=== PATIENT | male | born 1965 | race Native Hawaiian/Other Pacific Islander ===

== ENCOUNTER 2017-06-16 04:01 | Inpatient (IN) | payer OTHER ==
[2017-06-16] MEDS ORDERED: ZOFRAN IV ONE ×2 (04:05→06:44)
[2017-06-16] MEDS ORDERED: ZOFRAN ONE (04:12)
[2017-06-16 04:31] LABS: Hematocrit 43.6 % (35.5-45.6); Hemoglobin 14.8 gm/dl (11.8-15.2); Mean Corpuscular HGB Conc 34 % (32-34); Mean Corpuscular Hemoglobin 28 pg (28-32); Mean Corpuscular Volume 82 fl (84-94); Platelet Count 342 K/mm3 (140-440); Red Blood Count 5.32 M/mm3 (3.65-5.03); Red Cell Distribution Width 14.4 % (13.2-15.2); White Blood Count 15.5 K/mm3 (4.5-11.0)
[2017-06-16 04:54] LABS: Alanine Aminotransferase 32 units/L (7-56); Albumin 4.1 g/dL (3.9-5); Albumin/Globulin Ratio 1.1 %; Alkaline Phosphatase 73 units/L (35-129); Anion Gap 22 mmol/L; Blood Urea Nitrogen 18 mg/dL (9-20); Calcium 8.7 mg/dL (8.4-10.2); Carbon Dioxide 21 mmol/L (22-30); Chloride 99.5 mmol/L (98-107); Glucose 213 mg/dL (75-100); Lipase 44 units/L (13-60); Potassium 3.4 mmol/L (3.6-5.0); Sodium 139 mmol/L (137-145)
--- NOTE | 2017-06-16 05:29 | Cat Scan Report ---
FINAL REPORT PROCEDURE: CT HEAD/BRAIN WO CON TECHNIQUE: Computerized tomography of the head was performed without contrast material. HISTORY: headache, htn COMPARISON: No prior studies are available for comparison. FINDINGS: Skull and scalp: Normal. Paranasal sinuses: Normal. Ventricles and subarachnoid spaces: Normal. Cerebrum: No evidence of hemorrhage, acute infarction or mass . Cerebellum and brainstem: No evidence of hemorrhage, acute infarction or mass. Vasculature: Normal. Comments: None. IMPRESSION: There is no evidence of an acute intracranial process
[2017-06-16 05:59] LABS: Basophils % (Manual) 0 % (0.0-1.8); Blastocytes % (Manual) 0 %; Diff Status Complete; RBC Morphology Normal
[2017-06-16 06:33] LABS: Bilirubin,Urine NEG (Negative); Blood,Urine NEG (Negative); Ketones,Urine NEG (Negative); Leukocyte Esterase,Urine NEG (Negative); Nitrite,Urine NEG (Negative); Protein,Urine <15 mg/dL mg/dL (Negative); Urobilinogen,Urine < 2.0 mg/dL (<2.0); WBC,Urine < 1.0 /HPF (0.0-6.0)
[2017-06-16] MEDS ORDERED: NACL 0.9% 1000 ML 1,000 ML IV ONE (06:44)
[2017-06-16] MEDS ORDERED: ANTIVERT PO ONE (06:44)
--- NOTE | 2017-06-16 06:47 | Emergency Department Report ---
HPI - General Chief Complaint: High BP Time Seen by Provider: 06/16/17 05:06 - HPI HPI: This is a 51-year-old male who presents to the emergency department via EMS from home with a complaint of a generalized headache, nausea, vomiting and dizziness. This dizziness does have some symptoms of vertigo and/or the room spinning. This began "out of nowhere" this evening when he got home. He did not take anything for his symptoms prior to presentation. He denies any vision change, slurred speech or any other obvious neurological deficits. The patient was found to have very elevated blood pressure upon EMS arrival with a systolic of about 200. The patient admits that he has not taken his blood pressure medication, whose name he cannot remember, for the past month because it causes nausea. He is also a [id number]-[id number] diabetic but says he is compliant with his metformin. He denies tobacco or illicit drug use or abuse. He denies any alcohol abuse or caffeine use. No recent travel or sick contacts at home. His primary care physician is a Dr. Cobb. ED Past Medical Hx - Past Medical History Hx Hypertension: Yes Hx Diabetes: Yes - Surgical History Past Surgical History?: No - Social History Smoking Status: Never Smoker Substance Use Type: None ED Review of Systems ROS: Stated complaint: NV Other details as noted in HPI Comment: All other systems reviewed and negative Constitutional: denies: chills, fever Eyes: denies: eye pain, eye discharge, vision change ENT: denies: ear pain, throat pain Respiratory: denies: cough, shortness of breath, wheezing Cardiovascular: denies: chest pain, palpitations Gastrointestinal: nausea, vomiting Genitourinary: denies: urgency, dysuria Musculoskeletal: denies: back pain, joint swelling, arthralgia Skin: denies: rash, lesions Neurological: headache, vertigo, other (dizziness). denies: weakness, numbness , paresthesias Physical Exam - Physical Exam Vital Signs: Vital Signs 06/16/17 06/16/17 04:26 04:32 Temperature 98.7 F Pulse Rate 80 Respiratory 20 Rate Blood Pressure 146/97 O2 Sat by Pulse 100 99 Oximetry Physical Exam: GENERAL: The patient is well-developed well-nourished. HENT: Normocephalic. Atraumatic. Patient has moist mucous membranes. EYES: Extraocular motions are intact. Pupils equal reactive to light bilaterally. Fatigable horizontal nystagmus. NECK: Supple. Trachea is midline. CHEST/LUNGS: Clear to auscultation. There is no respiratory distress noted. HEART/CARDIOVASCULAR: Regular. There is no tachycardia. There is no gallop rub or murmur. ABDOMEN: Abdomen is soft, nontender. Patient has normal bowel sounds. There is no abdominal distention. SKIN: Skin is warm and dry. NEURO: The patient is awake, alert, and oriented. The patient is cooperative. The patient has no focal neurologic deficits. The patient has normal speech. Cranial nerves II through XII grossly intact. No pronator drift. No dysmetria. MUSCULOSKELETAL: There is no tenderness or deformity. There is no limitation range of motion. There is no evidence of acute injury. ED Course Vital Signs 06/16/17 06/16/17 04:26 04:32 Temperature 98.7 F Pulse Rate 80 Respiratory 20 Rate Blood Pressure 146/97 O2 Sat by Pulse 100 99 Oximetry ED Medical Decision Making - Lab Data Result diagrams: 06/16/17 04:22 06/16/17 04:22 - EKG Data -: EKG Interpreted by Ok EKG shows normal: sinus rhythm, axis, intervals, QRS complexes, ST-T waves (T wave inversions to the lateral leads) Rate: normal - EKG Data When compared to previous EKG there are: previous EKG unavailable Interpretation: other (sinus rhythm, normal axis, normal rate, T-wave inversions to the lateral leads) - Radiology Data Radiology results: report reviewed CT of the head does not show any acute intracranial process including no ischemia, shift, mass, bleeding or skull fracture. - Medical Decision Making This is a 51-year-old male who presents to the emergency department after he had an acute headache, dizziness, vertigo and nausea and vomiting last night. CT of the head does not show any bleed, shift, mass or any acute process. His EKG does not show any signs of ST elevation SD but there are lateral T-wave inversions and no previous EKG to compare this to. Labs thus far been unremarkable and do not show any etiology of the symptoms. Negative troponins 2 and normal thyroid function. There is a leukocytosis but it may be reactive to the nausea and vomiting. The patient had a documented hypertensive pressure with EMS of a systolic of about 200 but came down without any medications. He was given 8 of Zofran, 10 of Reglan, 25 mg of Antivert and upon reevaluation he still is not feeling improved. When he opens his eyes are with any movement it appears to worsen his vertigo/dizziness and his nausea. For this reason the patient will be admitted to the hospital for further evaluation and possible MRI to look into other etiology of his symptoms and he has been accepted for admission by the hospitalist service. - Differential Diagnosis vertigo, Mnire's, labrynthitis, CVA Critical Care Time: No Critical care attestation.: If time is entered above; I have spent that time in minutes in the direct care of this critically ill patient, excluding procedure time. ED Disposition Clinical Impression: Vertigo, Dizziness Headache Qualifiers: Headache type: unspecified Headache chronicity pattern: acute headache Intractability: not intractable Qualified Code(s): R51 - Headache Intractable nausea and vomiting Qualifiers: Vomiting type: unspecified Qualified Code(s): R11.2 - Nausea with vomiting, unspecified Disposition: -09 OP ADMIT IP TO THIS HOSP Is pt being admited?: Yes Condition: Stable Referrals: PRIMARY CARE, [Primary Care Provider] - 3-5 Days Time of Disposition: 08:18
[2017-06-16] MEDS ORDERED: REGLAN IV ONE (06:51)
--- NOTE | 2017-06-16 08:29 | Admit Criteria Form ---
<KELI CALLOWAY - Last Filed: 06/19/17 14:05> Admission Criteria Documentation: VERTIGO Clinical Indications for Admission to Inpatient Care (Place 'X' for any and all applicable criteria): Admission is indicated for ANY ONE of the following(1)(2)(3)(4): [ ]I. Acute bacterial labyrinthitis [ ]II. A suspected etiology that requires admission for treatment [X ]III. Inpatient admission required rather than observation care (Also use Vertigo: Observation Care as appropriate) because of ANY ONE of the following: [ ]a) Hemodynamic instability that is severe or persistent [X ]b) Signs or symptoms that are severe or persistent (eg, vomiting , orthostasis, inability to ambulate) [ ]c) Cardiac arrhythmias of immediate concern [ ]d) Severe (new) neurologic findings requiring inpatient care as indicated by ANY ONE of the following(6)(7) [ ]1) Cerebral bleeding, ischemia, or vasospasm(8)(9) [ ]2) Increased intracranial pressure or hydrocephalus(10) (11)(12) [ ]3) Papilledema [ ]4) Cerebral edema [ ]5) Mass effect on CT scan [ ]e) Vomiting that is severe or persistent [ ]f) Continuous IV infusion of anticoagulation, platelet inhibitor, vasoactive, or antiarrhythmic medication [ ]g) Cerebral bleeding, hydrocephalus, or vasospasm monitoring(14) [ ]h) Increased intracranial pressure or cerebral edema monitoring [ ]i) Other condition, treatment or monitoring requiring inpatient admission [ ]IV. Cerebellar, brainstem, or cerebral ischemia or hemorrhage(5) Extended stay beyond goal length of stay may be needed for evaluating and treating a specific cause of dizziness, including(26): [ ]a) Head injury (27) ( Also use Traumatic Brain Injury, Nonsurgical Treatment guideline) [ ]b) New-onset vertebrobasilar vascular insufficiency(23) [ ]c) Acute Meniere disease with intractable symptoms [ ]d) Cardiac arrhythmias or conduction defects [ ]e) Acute neurologic event causing dizziness [ ]f) Myocardial ischemia [ ]g) Acute bacterial labyrinthitis(1) [ ]h) Severe acute vestibular neuronitis(18) The original [employer] content created by Beth Durán has been revised. The portions of the content which have been revised are identified through the use of italic text or in bold, and [facility] has neither reviewed nor approved the modified material. All other unmodified content is copyright [facility] [employer]. Please see references footnoted in the original [facility] edition 2016 Admission Criteria Met: Yes <ELANA GARCÍA - Last Filed: 06/19/17 20:05> Admission Criteria Documentation: This admission criteria sheet had no bearing on any medical decision making or clinical decisions from the emergency department and full admission vs observational stay will be decided upon by the hospitalist service and any subsequent specialists seeing this patient.
[2017-06-16] MEDS ORDERED: ANTIVERT PO PRN (09:51)
[2017-06-16] MEDS ORDERED: ZOFRAN IM PRN (09:56)
--- NOTE | 2017-06-16 09:58 | History and Physical Report ---
<LIZ GONZALEZ - Last Filed: 06/16/17 12:28> History of Present Illness Date of examination: 06/16/17 Date of admission: 06/16/2017 Chief complaint: Dizziness,vertigo, nausea and vomiting History of present illness: Patient is a 51 years old male with past medical history of hypertension and diabetes mellitus who presents to the emergency department via EMS from home with a complaint of a generalized headache, nausea, vomiting and dizziness. Patient was in his usual state of health, which allows him to lead a fairly active life, until last night he ate canned mushroom soup that was left over the refrigerator. Patient states he noticed the dizziness as he was getting out of bed and followed by nausea and vomiting.He described the dizziness as "feeling like he was going to pass out." He does remember what happened and he did not lost consciousness, but he admitted vision change . He had a headache after the episode. Prior to dizziness, he did not experience a headache. The dizziness does have some symptoms of vertigo and/or the room spinning. he denies chest pain, palpitations, or shortness of breath. He was not incontinent. He did not take anything for his symptoms prior to presentation. patient was found to have very elevated blood pressure upon EMS arrival with a systolic of about 200. The patient admits that he has not taken his blood because makes him sick. Past History Past Medical History: diabetes, hypertension, other (gout ) Past Surgical History: No surgical history Social history: Lives alone. denies: smoking, alcohol abuse Family history: CAD, hypertension Medications and Allergies Allergies Allergy/AdvReac Type Severity Reaction Status Date / Time No Known Allergies Allergy Verified 06/16/17 04:09 Home Medications Medication Instructions Recorded Confirmed Last Taken Type Allopurinol 300 mg PO DAILY 06/16/17 06/16/17 Unknown History Glimepiride 1 mg PO DAILY 06/16/17 06/16/17 Unknown History Metformin HCl [Metformin HCl ER] 1,000 mg PO BID 06/16/17 06/16/17 Unknown History Active Meds: Active Medications Allopurinol (Zyloprim) 300 mg PO QDAY [facility] Enoxaparin Sodium (Lovenox) 40 mg SUB-Q QDAY MICHELLE Glimepiride (Amaryl) 1 mg PO QDDIAB [facility] Sodium Chloride (Nacl 0.9% 1000 Ml) 1,000 mls @ 250 mls/hr IV ONCE ONE Stop: 06/16/17 10:43 Last Admin: 06/16/17 07:04 Dose: 250 mls/hr Sodium Chloride (Nacl 0.9% 1000 Ml) 1,000 mls @ 75 mls/hr IV DIRECT MICHELLE Meclizine HCl (Antivert) 25 mg PO Q8H PRN PRN Reason: Vertigo Miscellaneous Medication (Glimepiride [Glimepiride]) 1 mg PO DAILY [facility] Ondansetron HCl (Zofran) 4 mg IM Q4H PRN PRN Reason: Nausea And Vomiting Oxycodone/Acetaminophen (Percocet 5/325) 1 tab PO Q6H PRN PRN Reason: Pain, Moderate (4-6) Review of Systems Constitutional: no weight loss, no fever, no chills, no sweats Ears, nose, mouth and throat: no ear pain, no ear discharge, no tinnitis, no decreased hearing Cardiovascular: lightheadedness, no chest pain, no orthopnea, no palpitations, no rapid/irregular heart beat, no edema, no syncope Respiratory: no cough with sputum, no excessive sputum, no hemoptysis, no shortness of breath Gastrointestinal: nausea, vomiting, no diarrhea, no constipation, no change in bowel habits, no hematemesis Genitourinary Male: no hematuria, no flank pain, no discharge, no urinary frequency, no urinary hesitancy, no nocturia Rectal: no incontinence, no bleeding Musculoskeletal: no neck pain, no shooting arm pain, no arm numbness/tingling, no shooting leg pain, no leg numbness/tingling Integumentary: no rash, no pruritis, no sores, no wounds, no jaundice Neurological: vertigo, headaches, no weakness, no parathesias, no numbness, no tingling, no convulsions, no aphasia, no change in mentation, no confusion, no memory loss Psychiatric: no change in sleep habits, no sleep disturbances, no insomnia, no hypersomnia, no change in appetite, no hopelessness, no anxiety attacks, no difficulties concentrating, no confusion Endocrine: no polyphagia, no excessive thirst, no polydipsia, no polyuria Hematologic/Lymphatic: no easy bruising, no easy bleeding Allergic/Immunologic: no urticaria, no allergic rhinitis Exam - Constitutional Vitals: Temp Pulse Resp BP Pulse Ox 98.7 F 94 H 12 127/79 96 06/16/17 04:26 06/16/17 09:20 06/16/17 09:20 06/16/17 09:20 06/16/17 09:20 General appearance: Present: no acute distress - EENT Eyes: Present: PERRL ENT: hearing intact - Neck Neck: Present: supple - Respiratory Respiratory effort: normal Respiratory: bilateral: CTA - Cardiovascular Heart rate: 85 Rhythm: regular Heart Sounds: Present: S1 & S2 - Extremities Extremities: no ischemia Peripheral Pulses: within normal limits - Abdominal General gastrointestinal: Present: soft, non-tender Male genitourinary: Present: deferred - Rectal Rectal Exam: deferred - Integumentary Integumentary: Present: clear, warm, dry - Musculoskeletal Musculoskeletal: strength equal bilaterally - Psychiatric Psychiatric: appropriate mood/affect - Neurologic Neurologic: CNII-XII intact, moves all extremities - Allied Health Allied health notes reviewed: nursing Results - Labs CBC & Chem 7: 06/16/17 04:22 06/16/17 04:22 Labs: Laboratory Last Values WBC 15.5 K/mm3 (4.5-11.0) H 06/16/17 04:22 RBC 5.32 M/mm3 (3.65-5.03) H 06/16/17 04:22 Hgb 14.8 gm/dl (11.8-15.2) 06/16/17 04:22 Hct 43.6 % (35.5-45.6) 06/16/17 04:22 MCV 82 fl (84-94) L 06/16/17 04:22 MCH 28 pg (28-32) 06/16/17 04:22 MCHC 34 % (32-34) 06/16/17 04:22 RDW 14.4 % (13.2-15.2) 06/16/17 04:22 Plt Count 342 K/mm3 (140-440) 06/16/17 04:22 Lymph # Railroad Car Loader 06/16/17 04:22 Add Manual Diff Complete 06/16/17 04:22 Total Counted 100 06/16/17 04:22 Seg Neuts % (Manual) 52.0 % (40.0-70.0) 06/16/17 04:22 Band Neutrophils % 0 % 06/16/17 04:22 Lymphocytes % (Manual) 38.0 % (13.4-35.0) H 06/16/17 04:22 Reactive Lymphs % (Man) 2.0 % 06/16/17 04:22 Monocytes % (Manual) 5.0 % (0.0-7.3) 06/16/17 04:22 Eosinophils % (Manual) 3.0 % (0.0-4.3) 06/16/17 04:22 Basophils % (Manual) 0 % (0.0-1.8) 06/16/17 04:22 Metamyelocytes % 0 % 06/16/17 04:22 Myelocytes % 0 % 06/16/17 04:22 Promyelocytes % 0 % 06/16/17 04:22 Blast Cells % 0 % 06/16/17 04:22 Nucleated RBC % Not Reportable 06/16/17 04:22 Seg Neutrophils # Man 8.1 K/mm3 (1.8-7.7) H 06/16/17 04:22 Band Neutrophils # 0.0 K/mm3 06/16/17 04:22 Lymphocytes # (Manual) 5.9 K/mm3 (1.2-5.4) H 06/16/17 04:22 Abs React Lymphs (Man) 0.3 K/mm3 06/16/17 04:22 Monocytes # (Manual) 0.8 K/mm3 (0.0-0.8) 06/16/17 04:22 Eosinophils # (Manual) 0.5 K/mm3 (0.0-0.4) H 06/16/17 04:22 Basophils # (Manual) 0.0 K/mm3 (0.0-0.1) 06/16/17 04:22 Metamyelocytes # 0.0 K/mm3 06/16/17 04:22 Myelocytes # 0.0 K/mm3 06/16/17 04:22 Promyelocytes # 0.0 K/mm3 06/16/17 04:22 Blast Cells # 0.0 K/mm3 06/16/17 04:22 WBC Morphology Not Reportable 06/16/17 04:22 Hypersegmented Neuts Not Reportable 06/16/17 04:22 Hyposegmented Neuts Not Reportable 06/16/17 04:22 Hypogranular Neuts Not Reportable 06/16/17 04:22 Smudge Cells Not Reportable 06/16/17 04:22 Toxic Granulation Not Reportable 06/16/17 04:22 Toxic Vacuolation Not Reportable 06/16/17 04:22 Dohle Bodies Not Reportable 06/16/17 04:22 Pelger-Huet Anomaly Not Reportable 06/16/17 04:22 Dayami Rods Not Reportable 06/16/17 04:22 Platelet Estimate Appears normal 06/16/17 04:22 Clumped Platelets Not Reportable 06/16/17 04:22 Plt Clumps, EDTA Not Reportable 06/16/17 04:22 Large Platelets Not Reportable 06/16/17 04:22 Giant Platelets Not Reportable 06/16/17 04:22 Platelet Satelliting Not Reportable 06/16/17 04:22 Plt Morphology Comment Not Reportable 06/16/17 04:22 RBC Morphology Normal 06/16/17 04:22 Dimorphic RBCs Not Reportable 06/16/17 04:22 Polychromasia Not Reportable 06/16/17 04:22 Hypochromasia Not Reportable 06/16/17 04:22 Poikilocytosis Not Reportable 06/16/17 04:22 Anisocytosis Not Reportable 06/16/17 04:22 Microcytosis Not Reportable 06/16/17 04:22 Macrocytosis Not Reportable 06/16/17 04:22 Spherocytes Not Reportable 06/16/17 04:22 Pappenheimer Bodies Not Reportable 06/16/17 04:22 Sickle Cells Not Reportable 06/16/17 04:22 Target Cells Not Reportable 06/16/17 04:22 Tear Drop Cells Not Reportable 06/16/17 04:22 Ovalocytes Not Reportable 06/16/17 04:22 Helmet Cells Not Reportable 06/16/17 04:22 [place] Bodies Not Reportable 06/16/17 04:22 [place] Rings Not Reportable 06/16/17 04:22 [place] Cells Not Reportable 06/16/17 04:22 Bite Cells Not Reportable 06/16/17 04:22 Crenated Cell Not Reportable 06/16/17 04:22 Elliptocytes Not Reportable 06/16/17 04:22 Acanthocytes (Spur) Not Reportable 06/16/17 04:22 Rouleaux Not Reportable 06/16/17 04:22 Hemoglobin C Crystals Not Reportable 06/16/17 04:22 Schistocytes Not Reportable 06/16/17 04:22 Malaria parasites Not Reportable 06/16/17 04:22 Matt Bodies Not Reportable 06/16/17 04:22 Hem Pathologist Commnt No 06/16/17 04:22 Sodium 139 mmol/L (137-145) 06/16/17 04:22 Potassium 3.4 mmol/L (3.6-5.0) L 06/16/17 04:22 Chloride 99.5 mmol/L (98-107) 06/16/17 04:22 Carbon Dioxide 21 mmol/L (22-30) L 06/16/17 04:22 Anion Gap 22 mmol/L 06/16/17 04:22 BUN 18 mg/dL (9-20) 06/16/17 04:22 Creatinine 0.8 mg/dL (0.8-1.5) 06/16/17 04:22 Estimated GFR > 60 ml/min 06/16/17 04:22 BUN/Creatinine Ratio 22.50 % 06/16/17 04:22 Glucose 213 mg/dL (75-100) H 06/16/17 04:22 Calcium 8.7 mg/dL (8.4-10.2) 06/16/17 04:22 Total Bilirubin 0.20 mg/dL (0.1-1.2) 06/16/17 04:22 AST 19 units/L (5-40) 06/16/17 04:22 ALT 32 units/L (7-56) 06/16/17 04:22 Alkaline Phosphatase 73 units/L (35-129) 06/16/17 04:22 Troponin T < 0.010 ng/mL (0.00-0.029) 06/16/17 06:58 Total Protein 8.0 g/dL (6.3-8.2) 06/16/17 04:22 Albumin 4.1 g/dL (3.9-5) 06/16/17 04:22 Albumin/Globulin Ratio 1.1 % 06/16/17 04:22 Lipase 44 units/L (13-60) 06/16/17 04:22 TSH 0.953 mlU/mL (0.270-4.200) 06/16/17 06:58 Urine Color Straw (Yellow) 06/16/17 06:09 Urine Turbidity Clear (Clear) 06/16/17 06:09 Urine pH 5.0 (5.0-7.0) 06/16/17 06:09 Ur Specific [place] 1.014 (1.003-1.030) 06/16/17 06:09 Urine Protein <15 mg/dl mg/dL (Negative) 06/16/17 06:09 Urine Glucose (UA) Neg mg/dL (Negative) 06/16/17 06:09 Urine Ketones Neg mg/dL (Negative) 06/16/17 06:09 Urine Blood Neg (Negative) 06/16/17 06:09 Urine Nitrite Neg (Negative) 06/16/17 06:09 Urine Bilirubin Neg (Negative) 06/16/17 06:09 Urine Urobilinogen < 2.0 mg/dL (<2.0) 06/16/17 06:09 Ur Leukocyte Esterase Neg (Negative) 06/16/17 06:09 Urine WBC (Auto) < 1.0 /HPF (0.0-6.0) 06/16/17 06:09 Urine RBC (Auto) 0.0 /HPF (0.0-6.0) 06/16/17 06:09 U Epithel Cells (Auto) < 1.0 /HPF (0-13.0) 06/16/17 06:09 - Imaging and Cardiology Abdominal x-ray: image reviewed (unremarkable) CT Scan - head: image reviewed (normal) Assessment and Plan Assessment and plan: Patient is a 51 years old male with past medical history of hypertension and diabetes mellitus who presents to the emergency department via EMS from home with a complaint of a generalized headache, nausea, vomiting and dizziness. Pre-Syncope We will admit to MED/Surg Normal CT of the head shows acute intercranial process ischemia, shift, mass, bleeding or skull fracture. Echocardiogram ordred MRI ordered VL Carotid dupplex ordered IV fluid hydration Abnormal EKG EKG sinus rhythm, normal axis, normal rate, T-wave inversions to the lateral leads) Started on Asprin complete lipid panel ordered Echocardiogram ordred Mild vertigo Started on Antivert IV fluid hydration and the above plan Supportive care Intractable nausea and vomiting Antiemetic IV fluid hydration Supportive care Leukocytosis Most likely due to Acute gastroenteritis Blood culture and urine cultures ordered Lactic acid ordered Normal KUB Malignant hypertension Due to noncompliance with medes Started on Lisinopril IV Hydralazine for SBP>160 Closely monitor blood pressure Acute gastroenteritis Most likely Due to spoilage of food Started on PPI and antiemetic Supportive care Uncontrolled diabetes mellitus Hold metformin for now and continue Amary Accu-Chek before meals and at bedtime Sliding scale insulin/NovoLog Hypokalemia Preplaced Repeat BMP in the AM Closely monitor electrolytes Noncompliance Patient noncompliance with blood pressure medications, counseling done. DVT/prophylaxis Lovenox Advance Directives: Yes VTE prophylaxis?: Chemical Contraindication Mechanical VTE Prophylaxis: Treatment Not Indicated Plan of care discussed with patient/family: Yes <YEYO ULLOA R - Last Filed: 06/16/17 13:01> History of Present Illness Date of admission: 06/16/17 09:53 Medications and Allergies Active Meds: Active Medications Allopurinol (Zyloprim) 300 mg PO QDAY [facility] Last Admin: 06/16/17 10:41 Dose: 300 mg Aspirin (Aspirin) 325 mg PO DAILY [facility] Dextrose (D50w (25gm) Syringe) 50 ml IV PRN PRN PRN Reason: Hypoglycemia Enoxaparin Sodium (Lovenox) 40 mg SUB-Q QDAY [facility] Last Admin: 06/16/17 10:41 Dose: 40 mg Glimepiride (Amaryl) 1 mg PO QDDIAB [facility] Last Admin: 06/16/17 10:41 Dose: 1 mg Hydralazine HCl (Apresoline) 10 mg IV Q4HR [facility] Sodium Chloride (Nacl 0.9% 1000 Ml) 1,000 mls @ 75 mls/hr IV DIRECT [facility] Insulin Aspart (Novolog) 0 units SUB-Q AC [facility] PRN Reason: Protocol Last Admin: 06/16/17 12:56 Dose: Not Given Insulin Aspart (Novolog) 0 units SUB-Q QHS [facility] PRN Reason: Protocol Lisinopril (Zestril) 10 mg PO QDAY [facility] Meclizine HCl (Antivert) 25 mg PO Q8H PRN PRN Reason: Vertigo Ondansetron HCl (Zofran) 4 mg IM Q4H PRN PRN Reason: Nausea And Vomiting Oxycodone/Acetaminophen (Percocet 5/325) 1 tab PO Q6H PRN PRN Reason: Pain, Moderate (4-6) Pantoprazole Sodium (Protonix) 40 mg IV BID [facility] Last Admin: 06/16/17 12:57 Dose: 40 mg Potassium Chloride (K-Dur) 20 meq PO QDAY MICHELLE Exam - Constitutional Vitals: Temp Pulse Resp BP Pulse Ox 98.7 F 76 19 142/80 92 06/16/17 04:26 06/16/17 11:00 06/16/17 11:00 06/16/17 11:00 06/16/17 11:00 Results - Labs CBC & Chem 7: 06/16/17 04:22 06/16/17 04:22 Labs: Laboratory Last Values WBC 15.5 K/mm3 (4.5-11.0) H 06/16/17 04:22 RBC 5.32 M/mm3 (3.65-5.03) H 06/16/17 04:22 Hgb 14.8 gm/dl (11.8-15.2) 06/16/17 04:22 Hct 43.6 % (35.5-45.6) 06/16/17 04:22 MCV 82 fl (84-94) L 06/16/17 04:22 MCH 28 pg (28-32) 06/16/17 04:22 MCHC 34 % (32-34) 06/16/17 04:22 RDW 14.4 % (13.2-15.2) 06/16/17 04:22 Plt Count 342 K/mm3 (140-440) 06/16/17 04:22 Lymph # [place] Car Loader 06/16/17 04:22 Add Manual Diff Complete 06/16/17 04:22 Total Counted 100 06/16/17 04:22 Seg Neuts % (Manual) 52.0 % (40.0-70.0) 06/16/17 04:22 Band Neutrophils % 0 % 06/16/17 04:22 Lymphocytes % (Manual) 38.0 % (13.4-35.0) H 06/16/17 04:22 Reactive Lymphs % (Man) 2.0 % 06/16/17 04:22 Monocytes % (Manual) 5.0 % (0.0-7.3) 06/16/17 04:22 Eosinophils % (Manual) 3.0 % (0.0-4.3) 06/16/17 04:22 Basophils % (Manual) 0 % (0.0-1.8) 06/16/17 04:22 Metamyelocytes % 0 % 06/16/17 04:22 Myelocytes % 0 % 06/16/17 04:22 Promyelocytes % 0 % 06/16/17 04:22 Blast Cells % 0 % 06/16/17 04:22 Nucleated RBC % Not Reportable 06/16/17 04:22 Seg Neutrophils # Man 8.1 K/mm3 (1.8-7.7) H 06/16/17 04:22 Band Neutrophils # 0.0 K/mm3 06/16/17 04:22 Lymphocytes # (Manual) 5.9 K/mm3 (1.2-5.4) H 06/16/17 04:22 Abs React Lymphs (Man) 0.3 K/mm3 06/16/17 04:22 Monocytes # (Manual) 0.8 K/mm3 (0.0-0.8) 06/16/17 04:22 Eosinophils # (Manual) 0.5 K/mm3 (0.0-0.4) H 06/16/17 04:22 Basophils # (Manual) 0.0 K/mm3 (0.0-0.1) 06/16/17 04:22 Metamyelocytes # 0.0 K/mm3 06/16/17 04:22 Myelocytes # 0.0 K/mm3 06/16/17 04:22 Promyelocytes # 0.0 K/mm3 06/16/17 04:22 Blast Cells # 0.0 K/mm3 06/16/17 04:22 WBC Morphology Not Reportable 06/16/17 04:22 Hypersegmented Neuts Not Reportable 06/16/17 04:22 Hyposegmented Neuts Not Reportable 06/16/17 04:22 Hypogranular Neuts Not Reportable 06/16/17 04:22 Smudge Cells Not Reportable 06/16/17 04:22 Toxic Granulation Not Reportable 06/16/17 04:22 Toxic Vacuolation Not Reportable 06/16/17 04:22 Dohle Bodies Not Reportable 06/16/17 04:22 Pelger-[place]uet Anomaly Not Reportable 06/16/17 04:22 [place] Rods Not Reportable 06/16/17 04:22 Platelet Estimate Appears normal 06/16/17 04:22 Clumped Platelets Not Reportable 06/16/17 04:22 Plt Clumps, EDTA Not Reportable 06/16/17 04:22 Large Platelets Not Reportable 06/16/17 04:22 Giant Platelets Not Reportable 06/16/17 04:22 Platelet Satelliting Not Reportable 06/16/17 04:22 Plt Morphology Comment Not Reportable 06/16/17 04:22 RBC Morphology Normal 06/16/17 04:22 Dimorphic RBCs Not Reportable 06/16/17 04:22 Polychromasia Not Reportable 06/16/17 04:22 Hypochromasia Not Reportable 06/16/17 04:22 Poikilocytosis Not Reportable 06/16/17 04:22 Anisocytosis Not Reportable 06/16/17 04:22 Microcytosis Not Reportable 06/16/17 04:22 Macrocytosis Not Reportable 06/16/17 04:22 Spherocytes Not Reportable 06/16/17 04:22 Pappenheimer Bodies Not Reportable 06/16/17 04:22 Sickle Cells Not Reportable 06/16/17 04:22 Target Cells Not Reportable 06/16/17 04:22 Tear Drop Cells Not Reportable 06/16/17 04:22 Ovalocytes Not Reportable 06/16/17 04:22 Helmet Cells Not Reportable 06/16/17 04:22 [place] Bodies Not Reportable 06/16/17 04:22 [place] Rings Not Reportable 06/16/17 04:22 [place] Cells Not Reportable 06/16/17 04:22 Bite Cells Not Reportable 06/16/17 04:22 Crenated Cell Not Reportable 06/16/17 04:22 Elliptocytes Not Reportable 06/16/17 04:22 Acanthocytes (Spur) Not Reportable 06/16/17 04:22 Rouleaux Not Reportable 06/16/17 04:22 Hemoglobin C Crystals Not Reportable 06/16/17 04:22 Schistocytes Not Reportable 06/16/17 04:22 Malaria parasites Not Reportable 06/16/17 04:22 Matt Bodies Not Reportable 06/16/17 04:22 Hem Pathologist Commnt No 06/16/17 04:22 Sodium 139 mmol/L (137-145) 06/16/17 04:22 Potassium 3.4 mmol/L (3.6-5.0) L 06/16/17 04:22 Chloride 99.5 mmol/L (98-107) 06/16/17 04:22 Carbon Dioxide 21 mmol/L (22-30) L 06/16/17 04:22 Anion Gap 22 mmol/L 06/16/17 04:22 BUN 18 mg/dL (9-20) 06/16/17 04:22 Creatinine 0.8 mg/dL (0.8-1.5) 06/16/17 04:22 Estimated GFR > 60 ml/min 06/16/17 04:22 BUN/Creatinine Ratio 22.50 % 06/16/17 04:22 Glucose 213 mg/dL (75-100) H 06/16/17 04:22 POC Glucose 144 (70-105) H 06/16/17 12:57 Calcium 8.7 mg/dL (8.4-10.2) 06/16/17 04:22 Total Bilirubin 0.20 mg/dL (0.1-1.2) 06/16/17 04:22 AST 19 units/L (5-40) 06/16/17 04:22 ALT 32 units/L (7-56) 06/16/17 04:22 Alkaline Phosphatase 73 units/L (35-129) 06/16/17 04:22 Troponin T < 0.010 ng/mL (0.00-0.029) 06/16/17 06:58 Total Protein 8.0 g/dL (6.3-8.2) 06/16/17 04:22 Albumin 4.1 g/dL (3.9-5) 06/16/17 04:22 Albumin/Globulin Ratio 1.1 % 06/16/17 04:22 Lipase 44 units/L (13-60) 06/16/17 04:22 TSH 0.953 mlU/mL (0.270-4.200) 06/16/17 06:58 Urine Color Straw (Yellow) 06/16/17 06:09 Urine Turbidity Clear (Clear) 06/16/17 06:09 Urine pH 5.0 (5.0-7.0) 06/16/17 06:09 Ur Specific [place] 1.014 (1.003-1.030) 06/16/17 06:09 Urine Protein <15 mg/dl mg/dL (Negative) 06/16/17 06:09 Urine Glucose (UA) Neg mg/dL (Negative) 06/16/17 06:09 Urine Ketones Neg mg/dL (Negative) 06/16/17 06:09 Urine Blood Neg (Negative) 06/16/17 06:09 Urine Nitrite Neg (Negative) 06/16/17 06:09 Urine Bilirubin Neg (Negative) 06/16/17 06:09 Urine Urobilinogen < 2.0 mg/dL (<2.0) 06/16/17 06:09 Ur Leukocyte Esterase Neg (Negative) 06/16/17 06:09 Urine WBC (Auto) < 1.0 /HPF (0.0-6.0) 06/16/17 06:09 Urine RBC (Auto) 0.0 /HPF (0.0-6.0) 06/16/17 06:09 U Epithel Cells (Auto) < 1.0 /HPF (0-13.0) 06/16/17 06:09 Assessment and Plan Assessment and plan: I saw and evaluated the patient. I agree with the findings and the plan of care as documented in the Nurse Practitioner's~note, with the following corrections and additions. The headache with transient visual disturbances will be workup mri, us carotid, lipid, echo, ua, blood ctx pending Counseling done, friend Carmelo and Hiral at bedside.
[2017-06-16] MEDS ORDERED: NON-FORMULARY (Allopurinol 300 MG) PO SCH (10:00)
[2017-06-16] MEDS ORDERED: NACL 0.9% 1000 ML 1,000 ML IV SCH (10:00)
[2017-06-16] MEDS ORDERED: NON-FORMULARY (Glimepiride [Glimepiride] 1 MG) PO SCH (10:00)
[2017-06-16] MEDS ORDERED: LOVENOX SUB-Q ONE (10:38)
[2017-06-16] MEDS: AMARYL PO SCH (10:41)
[2017-06-16] MEDS: LOVENOX SUB-Q SCH (10:41)
[2017-06-16] MEDS: ZYLOPRIM PO SCH (10:41)
[2017-06-16] MEDS ORDERED: D50W (25GM) Syringe IV PRN (10:45)
--- NOTE | 2017-06-16 11:37 | XRay Report ---
SUPINE KUB: Nausea and vomiting. The abdominal gas pattern is unremarkable. No masses or organomegaly is identified and there is no gross evidence of free air or fluid. No significant soft tissue calcifications are noted. IMPRESSION: Normal study.
[2017-06-16] MEDS: NOVOLOG SUB-Q SCH ×3 (12:56→23:11)
[2017-06-16] MEDS: PROTONIX IV SCH ×2 (12:57→23:10)
[2017-06-16] MEDS: APRESOLINE IV SCH ×2 (18:19→22:00)
[2017-06-16] MEDS: PERCOCET 5/325 PO PRN (19:11)
[2017-06-16] MEDS: ZOFRAN IV PRN (23:05)
[2017-06-17] MEDS: APRESOLINE IV SCH ×3 (02:00→11:52)
[2017-06-17] MEDS: NOVOLOG SUB-Q SCH ×4 (07:37→22:51)
[2017-06-17] MEDS: AMARYL PO SCH (08:26)
[2017-06-17] MEDS: ZOFRAN IV PRN ×2 (08:26→18:39)
[2017-06-17] MEDS: PERCOCET 5/325 PO PRN ×2 (08:26→18:39)
[2017-06-17] MEDS ORDERED: ATIVAN IV ONE (11:00)
[2017-06-17] MEDS: PROTONIX IV SCH (11:53)
[2017-06-17] MEDS: K-DUR PO SCH (11:54)
[2017-06-17] MEDS: ASPIRIN PO SCH (11:54)
[2017-06-17] MEDS: LOVENOX SUB-Q SCH (11:54)
[2017-06-17] MEDS: ZYLOPRIM PO SCH (11:55)
[2017-06-17] MEDS: ZESTRIL PO SCH (11:56)
[2017-06-17] MEDS ORDERED: APRESOLINE IV PRN (12:52)
--- NOTE | 2017-06-17 12:55 | Progress Note ---
Assessment and Plan Assessment and plan: Patient is a 51 years old male with past medical history of hypertension and diabetes mellitus who presents to the emergency department via EMS from home with a complaint of a generalized headache, nausea, vomiting and dizziness. Malignant hypertension Due to noncompliance with medes Started on Lisinopril IV Hydralazine for SBP>160 Closely monitor blood pressure Pre-Syncope We will admit to MED/Surg Normal CT of the head shows acute intercranial process ischemia, shift, mass, bleeding or skull fracture. Echocardiogram ordered and is pending MRI ordered ==>"pt. refused exam eventhough sedated. Pt. stated he has to be put to sleep and thats the only he can do the MRI. Nurse Nia notified", exam is nonfocal with a can have this as outpatient Abnormal EKG EKG sinus rhythm, normal axis, normal rate, T-wave inversions to the lateral leads Started on Asprin complete lipid panel ordered==> has dyslipidemia, most likely metabolic syndrome , lifestyle modification initiated and discussed the patient Echocardiogram ordered and pending Suspected benign vertigo, no central nystagmus Started on Antivert IV fluid hydration and the above plan Supportive care Intractable nausea and vomiting Resolved Leukocytosis Most likely due to Acute gastroenteritis Blood culture and urine cultures ordered Lactic acid ordered, elevated Normal KUB Acute gastroenteritis Most likely Due to spoilage of food Started on PPI and antiemetic Supportive care Uncontrolled diabetes mellitus Hold metformin for now and continue Amary Accu-Chek before meals and at bedtime Sliding scale insulin/NovoLog Hypokalemia Replaced Repeat BMP in the AM Closely monitor electrolytes Noncompliance Patient noncompliance with blood pressure medications, counseling done. DVT/prophylaxis Lovenox Carotid Dopplers negative, CT head negative, MRI unable to be done, neurological exam is nonfocal, echocardiogram pending, home soon as blood pressure control, counseling compliance Full code disposition: Continue inpatient care, Echocardiogram is pending, cultures pending History Interval history: Patient was seen and examined. Follow-up on current diagnosis/blood pressure. Overnight uneventful. Patient denies any chest pain, shortness breath, nausea/ vomiting or severe headaches. Imaging, nursing note, chart, labs and old chart reviewed. Discussed with patient. Hospitalist Physical - Physical exam Narrative exam: GEN: WDWN, NAD, AWAKE, ALERT, ORIENTATED 3, patient speak fluent Polish HEENT: NCAT, EOMI, PERRL, OP Clear NECK: supple, no adenopathy, no thyromegaly, no JVD CVS/HEART: RRR, NORMAL S1S2, NO JVD, pulses present bilaterally CHEST/LUNGS: CTA B, Symmetrical chest expansion, good air entry bilaterally GI/Abdomen: soft, NTND, good bowel sounds, no guarding or rebound /Bladder: no suprapubic tenderness, no CVA or paraspinal tenderness EXT/Skin: no c/c/e, no significant edema or obvious rash MSK: FROM x 4 Neuro: CN 2-12 grossly intact, no new focal deficits Psych: calm - Constitutional Vitals: Temp Pulse Resp BP Pulse Ox 98.6 F 88 18 111/63 90 06/17/17 09:28 06/17/17 09:28 06/17/17 09:28 06/17/17 11:56 06/17/17 09:28 General appearance: Present: no acute distress Results - Labs CBC & Chem 7: 06/16/17 04:22 06/16/17 04:22 Labs: Laboratory Last Values WBC 15.5 K/mm3 (4.5-11.0) H 06/16/17 04:22 RBC 5.32 M/mm3 (3.65-5.03) H 06/16/17 04:22 Hgb 14.8 gm/dl (11.8-15.2) 06/16/17 04:22 Hct 43.6 % (35.5-45.6) 06/16/17 04:22 MCV 82 fl (84-94) L 06/16/17 04:22 MCH 28 pg (28-32) 06/16/17 04:22 MCHC 34 % (32-34) 06/16/17 04:22 RDW 14.4 % (13.2-15.2) 06/16/17 04:22 Plt Count 342 K/mm3 (140-440) 06/16/17 04:22 Lymph # Finishing Department Supervisor 06/16/17 04:22 Add Manual Diff Complete 06/16/17 04:22 Total Counted 100 06/16/17 04:22 Seg Neuts % (Manual) 52.0 % (40.0-70.0) 06/16/17 04:22 Band Neutrophils % 0 % 06/16/17 04:22 Lymphocytes % (Manual) 38.0 % (13.4-35.0) H 06/16/17 04:22 Reactive Lymphs % (Man) 2.0 % 06/16/17 04:22 Monocytes % (Manual) 5.0 % (0.0-7.3) 06/16/17 04:22 Eosinophils % (Manual) 3.0 % (0.0-4.3) 06/16/17 04:22 Basophils % (Manual) 0 % (0.0-1.8) 06/16/17 04:22 Metamyelocytes % 0 % 06/16/17 04:22 Myelocytes % 0 % 06/16/17 04:22 Promyelocytes % 0 % 06/16/17 04:22 Blast Cells % 0 % 06/16/17 04:22 Nucleated RBC % Not Reportable 06/16/17 04:22 Seg Neutrophils # Man 8.1 K/mm3 (1.8-7.7) H 06/16/17 04:22 Band Neutrophils # 0.0 K/mm3 06/16/17 04:22 Lymphocytes # (Manual) 5.9 K/mm3 (1.2-5.4) H 06/16/17 04:22 Abs React Lymphs (Man) 0.3 K/mm3 06/16/17 04:22 Monocytes # (Manual) 0.8 K/mm3 (0.0-0.8) 06/16/17 04:22 Eosinophils # (Manual) 0.5 K/mm3 (0.0-0.4) H 06/16/17 04:22 Basophils # (Manual) 0.0 K/mm3 (0.0-0.1) 06/16/17 04:22 Metamyelocytes # 0.0 K/mm3 06/16/17 04:22 Myelocytes # 0.0 K/mm3 06/16/17 04:22 Promyelocytes # 0.0 K/mm3 06/16/17 04:22 Blast Cells # 0.0 K/mm3 06/16/17 04:22 WBC Morphology Not Reportable 06/16/17 04:22 Hypersegmented Neuts Not Reportable 06/16/17 04:22 Hyposegmented Neuts Not Reportable 06/16/17 04:22 Hypogranular Neuts Not Reportable 06/16/17 04:22 Smudge Cells Not Reportable 06/16/17 04:22 Toxic Granulation Not Reportable 06/16/17 04:22 Toxic Vacuolation Not Reportable 06/16/17 04:22 Dohle Bodies Not Reportable 06/16/17 04:22 Pelger-Huet Anomaly Not Reportable 06/16/17 04:22 Dayami Rods Not Reportable 06/16/17 04:22 Platelet Estimate Appears normal 06/16/17 04:22 Clumped Platelets Not Reportable 06/16/17 04:22 Plt Clumps, EDTA Not Reportable 06/16/17 04:22 Large Platelets Not Reportable 06/16/17 04:22 Giant Platelets Not Reportable 06/16/17 04:22 Platelet Satelliting Not Reportable 06/16/17 04:22 Plt Morphology Comment Not Reportable 06/16/17 04:22 RBC Morphology Normal 06/16/17 04:22 Dimorphic RBCs Not Reportable 06/16/17 04:22 Polychromasia Not Reportable 06/16/17 04:22 Hypochromasia Not Reportable 06/16/17 04:22 Poikilocytosis Not Reportable 06/16/17 04:22 Anisocytosis Not Reportable 06/16/17 04:22 Microcytosis Not Reportable 06/16/17 04:22 Macrocytosis Not Reportable 06/16/17 04:22 Spherocytes Not Reportable 06/16/17 04:22 Pappenheimer Bodies Not Reportable 06/16/17 04:22 Sickle Cells Not Reportable 06/16/17 04:22 Target Cells Not Reportable 06/16/17 04:22 Tear Drop Cells Not Reportable 06/16/17 04:22 Ovalocytes Not Reportable 06/16/17 04:22 Helmet Cells Not Reportable 06/16/17 04:22 Larsen-[place] Bodies Not Reportable 06/16/17 04:22 [place] Rings Not Reportable 06/16/17 04:22 [place] Cells Not Reportable 06/16/17 04:22 Bite Cells Not Reportable 06/16/17 04:22 Crenated Cell Not Reportable 06/16/17 04:22 Elliptocytes Not Reportable 06/16/17 04:22 Acanthocytes (Spur) Not Reportable 06/16/17 04:22 Rouleaux Not Reportable 06/16/17 04:22 Hemoglobin C Crystals Not Reportable 06/16/17 04:22 Schistocytes Not Reportable 06/16/17 04:22 Malaria parasites Not Reportable 06/16/17 04:22 Matt Bodies Not Reportable 06/16/17 04:22 Hem Pathologist Commnt No 06/16/17 04:22 Sodium 139 mmol/L (137-145) 06/16/17 04:22 Potassium 3.4 mmol/L (3.6-5.0) L 06/16/17 04:22 Chloride 99.5 mmol/L (98-107) 06/16/17 04:22 Carbon Dioxide 21 mmol/L (22-30) L 06/16/17 04:22 Anion Gap 22 mmol/L 06/16/17 04:22 BUN 18 mg/dL (9-20) 06/16/17 04:22 Creatinine 0.8 mg/dL (0.8-1.5) 06/16/17 04:22 Estimated GFR > 60 ml/min 06/16/17 04:22 BUN/Creatinine Ratio 22.50 % 06/16/17 04:22 Glucose 213 mg/dL (75-100) H 06/16/17 04:22 POC Glucose 118 (70-105) H 06/17/17 06:27 Lactic Acid 2.70 mmol/L (0.7-2.0) H* 06/16/17 15:03 Calcium 8.7 mg/dL (8.4-10.2) 06/16/17 04:22 Total Bilirubin 0.20 mg/dL (0.1-1.2) 06/16/17 04:22 AST 19 units/L (5-40) 06/16/17 04:22 ALT 32 units/L (7-56) 06/16/17 04:22 Alkaline Phosphatase 73 units/L (35-129) 06/16/17 04:22 Troponin T < 0.010 ng/mL (0.00-0.029) 06/16/17 06:58 Total Protein 8.0 g/dL (6.3-8.2) 06/16/17 04:22 Albumin 4.1 g/dL (3.9-5) 06/16/17 04:22 Albumin/Globulin Ratio 1.1 % 06/16/17 04:22 Triglycerides 246 mg/dL (2-149) H 06/17/17 04:56 Cholesterol 203 mg/dL (50-199) H 06/17/17 04:56 LDL Cholesterol Direct 123 mg/dL (50-130) 06/17/17 04:56 HDL Cholesterol 31 mg/dL (40-59) L 06/17/17 04:56 Cholesterol/HDL Ratio 6.54 % 06/17/17 04:56 Lipase 44 units/L (13-60) 06/16/17 04:22 TSH 0.953 mlU/mL (0.270-4.200) 06/16/17 06:58 Urine Color Straw (Yellow) 06/16/17 06:09 Urine Turbidity Clear (Clear) 06/16/17 06:09 Urine pH 5.0 (5.0-7.0) 06/16/17 06:09 Ur Specific [place] 1.014 (1.003-1.030) 06/16/17 06:09 Urine Protein <15 mg/dl mg/dL (Negative) 06/16/17 06:09 Urine Glucose (UA) Neg mg/dL (Negative) 06/16/17 06:09 Urine Ketones Neg mg/dL (Negative) 06/16/17 06:09 Urine Blood Neg (Negative) 06/16/17 06:09 Urine Nitrite Neg (Negative) 06/16/17 06:09 Urine Bilirubin Neg (Negative) 06/16/17 06:09 Urine Urobilinogen < 2.0 mg/dL (<2.0) 06/16/17 06:09 Ur Leukocyte Esterase Neg (Negative) 06/16/17 06:09 Urine WBC (Auto) < 1.0 /HPF (0.0-6.0) 06/16/17 06:09 Urine RBC (Auto) 0.0 /HPF (0.0-6.0) 06/16/17 06:09 U Epithel Cells (Auto) < 1.0 /HPF (0-13.0) 06/16/17 06:09
[2017-06-18 06:11] LABS: Anion Gap 16 mmol/L; Blood Urea Nitrogen 12 mg/dL (9-20); Calcium 8.8 mg/dL (8.4-10.2); Carbon Dioxide 26 mmol/L (22-30); Chloride 99.1 mmol/L (98-107); Glucose 106 mg/dL (75-100); Potassium 4.3 mmol/L (3.6-5.0); Sodium 137 mmol/L (137-145)
[2017-06-18 06:13] LABS: Hematocrit 40.4 % (35.5-45.6); Hemoglobin 13.7 gm/dl (11.8-15.2); Mean Corpuscular HGB Conc 34 % (32-34); Mean Corpuscular Hemoglobin 28 pg (28-32); Mean Corpuscular Volume 81 fl (84-94); Platelet Count 323 K/mm3 (140-440); Red Blood Count 4.98 M/mm3 (3.65-5.03); Red Cell Distribution Width 14.1 % (13.2-15.2); White Blood Count 12.3 K/mm3 (4.5-11.0)
[2017-06-18] MEDS: ZOFRAN IV PRN (06:29)
[2017-06-18] MEDS: NOVOLOG SUB-Q SCH ×4 (08:44→22:01)
[2017-06-18] MEDS: AMARYL PO SCH (08:55)
[2017-06-18] MEDS: LOVENOX SUB-Q SCH (10:29)
[2017-06-18] MEDS: ZYLOPRIM PO SCH (10:30)
[2017-06-18] MEDS: ASPIRIN PO SCH (10:30)
[2017-06-18] MEDS: K-DUR PO SCH (10:30)
[2017-06-18] MEDS: ZESTRIL PO SCH (10:31)
--- NOTE | 2017-06-18 10:48 | Progress Note ---
Assessment and Plan Assessment and plan: Patient is a 51 years old male with past medical history of hypertension and diabetes mellitus who presents to the emergency department via EMS from home with a complaint of a generalized headache, nausea, vomiting and dizziness. Malignant hypertension Due to noncompliance with meds Started on Lisinopril IV Hydralazine for SBP>160 Closely monitor blood pressure Pre-Syncope We will admit to MED/Surg Normal CT of the head shows acute intercranial process ischemia, shift, mass, bleeding or skull fracture. Echocardiogram ordered and is pending MRI ordered ==>"pt. refused exam eventhough sedated. Pt. stated he has to be put to sleep and thats the only he can do the MRI. Nurse Nia notified", exam is nonfocal with a can have this as outpatient Abnormal EKG EKG sinus rhythm, normal axis, normal rate, T-wave inversions to the lateral leads Started on Asprin complete lipid panel ordered==> has dyslipidemia, most likely metabolic syndrome , lifestyle modification initiated and discussed the patient Echocardiogram ordered and reviewed Suspected benign vertigo, no central nystagmus Started on Antivert IV fluid hydration and the above plan Supportive care Intractable nausea and vomiting Resolved Leukocytosis, reactive Most likely due to Acute gastroenteritis Blood culture and urine cultures ordered Lactic acid ordered, elevated Normal KUB Acute gastroenteritis Most likely Due to spoilage of food Started on PPI and antiemetic Supportive care Uncontrolled diabetes mellitus Hold metformin for now and continue Amary Accu-Chek before meals and at bedtime Sliding scale insulin/NovoLog Hypokalemia Replaced Repeat BMP in the AM Closely monitor electrolytes Noncompliance Patient noncompliance with blood pressure medications, counseling done. DVT/prophylaxis Lovenox Carotid Dopplers negative, CT head negative, MRI unable to be done, neurological exam is nonfocal, echocardiogram pending, home soon as blood pressure control, counseling compliance Full code Disposition: Continue inpatient care, Echocardiogram normal. Cultures are normal. New issue: patient c/o fall with ataxia, unable to get an MRI because of claustrophobia, even 1 mg IV Ativan did not work. We'll consult neurology once available. History Interval history: Patient was seen and examined. Follow-up on current diagnosis/blood pressure. Overnight uneventful. Patient denies any chest pain, shortness breath, nausea/ vomiting or severe headaches. Imaging, nursing note, chart, labs and old chart reviewed. Discussed with patient. New issue, dizziness, imbalance and fall backwards unto bed, no head trauma, no syncope Hospitalist Physical - Physical exam Narrative exam: GEN: WDWN, NAD, AWAKE, ALERT, ORIENTATED 3, patient speak fluent [place] HEENT: NCAT, EOMI, PERRL, OP Clear NECK: supple, no adenopathy, no thyromegaly, no JVD CVS/HEART: RRR, NORMAL S1S2, NO JVD, pulses present bilaterally CHEST/LUNGS: CTA B, Symmetrical chest expansion, good air entry bilaterally GI/Abdomen: soft, NTND, good bowel sounds, no guarding or rebound /Bladder: no suprapubic tenderness, no CVA or paraspinal tenderness EXT/Skin: no c/c/e, no significant edema or obvious rash MSK: FROM x 4 Neuro: CN 2-12 grossly intact, no new focal deficits Psych: calm - Constitutional Vitals: Temp Pulse Resp BP Pulse Ox 99.0 F 67 16 106/59 94 06/18/17 07:40 06/18/17 10:31 06/18/17 07:40 06/18/17 10:31 06/18/17 07:40 General appearance: Present: no acute distress Results - Labs CBC & Chem 7: 06/18/17 05:04 06/18/17 05:04 Labs: Laboratory Last Values WBC 12.3 K/mm3 (4.5-11.0) H 06/18/17 05:04 RBC 4.98 M/mm3 (3.65-5.03) 06/18/17 05:04 Hgb 13.7 gm/dl (11.8-15.2) 06/18/17 05:04 Hct 40.4 % (35.5-45.6) 06/18/17 05:04 MCV 81 fl (84-94) L 06/18/17 05:04 MCH 28 pg (28-32) 06/18/17 05:04 MCHC 34 % (32-34) 06/18/17 05:04 RDW 14.1 % (13.2-15.2) 06/18/17 05:04 Plt Count 323 K/mm3 (140-440) 06/18/17 05:04 Lymph # Designer 06/16/17 04:22 Add Manual Diff Complete 06/16/17 04:22 Total Counted 100 06/16/17 04:22 Seg Neuts % (Manual) 52.0 % (40.0-70.0) 06/16/17 04:22 Band Neutrophils % 0 % 06/16/17 04:22 Lymphocytes % (Manual) 38.0 % (13.4-35.0) H 06/16/17 04:22 Reactive Lymphs % (Man) 2.0 % 06/16/17 04:22 Monocytes % (Manual) 5.0 % (0.0-7.3) 06/16/17 04:22 Eosinophils % (Manual) 3.0 % (0.0-4.3) 06/16/17 04:22 Basophils % (Manual) 0 % (0.0-1.8) 06/16/17 04:22 Metamyelocytes % 0 % 06/16/17 04:22 Myelocytes % 0 % 06/16/17 04:22 Promyelocytes % 0 % 06/16/17 04:22 Blast Cells % 0 % 06/16/17 04:22 Nucleated RBC % Not Reportable 06/16/17 04:22 Seg Neutrophils # Man 8.1 K/mm3 (1.8-7.7) H 06/16/17 04:22 Band Neutrophils # 0.0 K/mm3 06/16/17 04:22 Lymphocytes # (Manual) 5.9 K/mm3 (1.2-5.4) H 06/16/17 04:22 Abs React Lymphs (Man) 0.3 K/mm3 06/16/17 04:22 Monocytes # (Manual) 0.8 K/mm3 (0.0-0.8) 06/16/17 04:22 Eosinophils # (Manual) 0.5 K/mm3 (0.0-0.4) H 06/16/17 04:22 Basophils # (Manual) 0.0 K/mm3 (0.0-0.1) 06/16/17 04:22 Metamyelocytes # 0.0 K/mm3 06/16/17 04:22 Myelocytes # 0.0 K/mm3 06/16/17 04:22 Promyelocytes # 0.0 K/mm3 06/16/17 04:22 Blast Cells # 0.0 K/mm3 06/16/17 04:22 WBC Morphology Not Reportable 06/16/17 04:22 Hypersegmented Neuts Not Reportable 06/16/17 04:22 Hyposegmented Neuts Not Reportable 06/16/17 04:22 Hypogranular Neuts Not Reportable 06/16/17 04:22 Smudge Cells Not Reportable 06/16/17 04:22 Toxic Granulation Not Reportable 06/16/17 04:22 Toxic Vacuolation Not Reportable 06/16/17 04:22 Dohle Bodies Not Reportable 06/16/17 04:22 Pelger-Huet Anomaly Not Reportable 06/16/17 04:22 Dayami Rods Not Reportable 06/16/17 04:22 Platelet Estimate Appears normal 06/16/17 04:22 Clumped Platelets Not Reportable 06/16/17 04:22 Plt Clumps, EDTA Not Reportable 06/16/17 04:22 Large Platelets Not Reportable 06/16/17 04:22 Giant Platelets Not Reportable 06/16/17 04:22 Platelet Satelliting Not Reportable 06/16/17 04:22 Plt Morphology Comment Not Reportable 06/16/17 04:22 RBC Morphology Normal 06/16/17 04:22 Dimorphic RBCs Not Reportable 06/16/17 04:22 Polychromasia Not Reportable 06/16/17 04:22 Hypochromasia Not Reportable 06/16/17 04:22 Poikilocytosis Not Reportable 06/16/17 04:22 Anisocytosis Not Reportable 06/16/17 04:22 Microcytosis Not Reportable 06/16/17 04:22 Macrocytosis Not Reportable 06/16/17 04:22 Spherocytes Not Reportable 06/16/17 04:22 Pappenheimer Bodies Not Reportable 06/16/17 04:22 Sickle Cells Not Reportable 06/16/17 04:22 Target Cells Not Reportable 06/16/17 04:22 Tear Drop Cells Not Reportable 06/16/17 04:22 Ovalocytes Not Reportable 06/16/17 04:22 Helmet Cells Not Reportable 06/16/17 04:22 Larsen-[place] Bodies Not Reportable 06/16/17 04:22 [place] Rings Not Reportable 06/16/17 04:22 [place] Cells Not Reportable 06/16/17 04:22 Bite Cells Not Reportable 06/16/17 04:22 Crenated Cell Not Reportable 06/16/17 04:22 Elliptocytes Not Reportable 06/16/17 04:22 Acanthocytes (Spur) Not Reportable 06/16/17 04:22 Rouleaux Not Reportable 06/16/17 04:22 Hemoglobin C Crystals Not Reportable 06/16/17 04:22 Schistocytes Not Reportable 06/16/17 04:22 Malaria parasites Not Reportable 06/16/17 04:22 Matt Bodies Not Reportable 06/16/17 04:22 Hem Pathologist Commnt No 06/16/17 04:22 Sodium 137 mmol/L (137-145) 06/18/17 05:04 Potassium 4.3 mmol/L (3.6-5.0) D 06/18/17 05:04 Chloride 99.1 mmol/L (98-107) 06/18/17 05:04 Carbon Dioxide 26 mmol/L (22-30) 06/18/17 05:04 Anion Gap 16 mmol/L 06/18/17 05:04 BUN 12 mg/dL (9-20) 06/18/17 05:04 Creatinine 0.8 mg/dL (0.8-1.5) 06/18/17 05:04 Estimated GFR > 60 ml/min 06/18/17 05:04 BUN/Creatinine Ratio 15.00 % 06/18/17 05:04 Glucose 106 mg/dL (75-100) H 06/18/17 05:04 POC Glucose 122 (70-105) H 06/18/17 06:25 Lactic Acid 2.70 mmol/L (0.7-2.0) H* 06/16/17 15:03 Calcium 8.8 mg/dL (8.4-10.2) 06/18/17 05:04 Total Bilirubin 0.20 mg/dL (0.1-1.2) 06/16/17 04:22 AST 19 units/L (5-40) 06/16/17 04:22 ALT 32 units/L (7-56) 06/16/17 04:22 Alkaline Phosphatase 73 units/L (35-129) 06/16/17 04:22 Troponin T < 0.010 ng/mL (0.00-0.029) 06/16/17 06:58 Total Protein 8.0 g/dL (6.3-8.2) 06/16/17 04:22 Albumin 4.1 g/dL (3.9-5) 06/16/17 04:22 Albumin/Globulin Ratio 1.1 % 06/16/17 04:22 Triglycerides 246 mg/dL (2-149) H 06/17/17 04:56 Cholesterol 203 mg/dL (50-199) H 06/17/17 04:56 LDL Cholesterol Direct 123 mg/dL (50-130) 06/17/17 04:56 HDL Cholesterol 31 mg/dL (40-59) L 06/17/17 04:56 Cholesterol/HDL Ratio 6.54 % 06/17/17 04:56 Lipase 44 units/L (13-60) 06/16/17 04:22 TSH 0.953 mlU/mL (0.270-4.200) 06/16/17 06:58 Urine Color Straw (Yellow) 06/16/17 06:09 Urine Turbidity Clear (Clear) 06/16/17 06:09 Urine pH 5.0 (5.0-7.0) 06/16/17 06:09 Ur Specific [place] 1.014 (1.003-1.030) 06/16/17 06:09 Urine Protein <15 mg/dl mg/dL (Negative) 06/16/17 06:09 Urine Glucose (UA) Neg mg/dL (Negative) 06/16/17 06:09 Urine Ketones Neg mg/dL (Negative) 06/16/17 06:09 Urine Blood Neg (Negative) 06/16/17 06:09 Urine Nitrite Neg (Negative) 06/16/17 06:09 Urine Bilirubin Neg (Negative) 06/16/17 06:09 Urine Urobilinogen < 2.0 mg/dL (<2.0) 06/16/17 06:09 Ur Leukocyte Esterase Neg (Negative) 06/16/17 06:09 Urine WBC (Auto) < 1.0 /HPF (0.0-6.0) 06/16/17 06:09 Urine RBC (Auto) 0.0 /HPF (0.0-6.0) 06/16/17 06:09 U Epithel Cells (Auto) < 1.0 /HPF (0-13.0) 06/16/17 06:09
--- NOTE | 2017-06-18 15:07 | Consultation ---
History of Present Illness - Reason for Consult Consult date: 06/18/17 vertigo - History of Present Illness one set of severe vertigo and right sided headaches that are very severe at this point exam is unrenmarkable plan will give lyrica and check MRI Past History Past Medical History: diabetes, hypertension, other (gout ) Past Surgical History: No surgical history Social history: Lives alone. denies: smoking, alcohol abuse Family history: CAD, hypertension Medications and Allergies Allergies Allergy/AdvReac Type Severity Reaction Status Date / Time No Known Allergies Allergy Verified 06/16/17 04:09 Home Medications Medication Instructions Recorded Confirmed Last Taken Type Allopurinol 300 mg PO DAILY 06/16/17 06/16/17 Unknown History Glimepiride 1 mg PO DAILY 06/16/17 06/16/17 Unknown History Metformin HCl [Metformin HCl ER] 1,000 mg PO BID 06/16/17 06/16/17 Unknown History Active Meds: Active Medications Allopurinol (Zyloprim) 300 mg PO QDAY [facility] Last Admin: 06/18/17 10:30 Dose: 300 mg Aspirin (Aspirin) 325 mg PO DAILY [facility] Last Admin: 06/18/17 10:30 Dose: 325 mg Dextrose (D50w (25gm) Syringe) 50 ml IV PRN PRN PRN Reason: Hypoglycemia Enoxaparin Sodium (Lovenox) 40 mg SUB-Q QDAY [facility] Last Admin: 06/18/17 10:29 Dose: 40 mg Glimepiride (Amaryl) 1 mg PO QDDIAB [facility] Last Admin: 06/18/17 08:55 Dose: 1 mg Hydralazine HCl (Apresoline) 10 mg IV Q4H PRN PRN Reason: Blood Pressure Insulin Aspart (Novolog) 0 units SUB-Q AC [facility] PRN Reason: Protocol Last Admin: 06/18/17 11:44 Dose: Not Given Insulin Aspart (Novolog) 0 units SUB-Q QHS [facility] PRN Reason: Protocol Last Admin: 06/17/17 22:51 Dose: Not Given Lisinopril (Zestril) 10 mg PO QDAY [facility] Last Admin: 06/18/17 10:31 Dose: Not Given Meclizine HCl (Antivert) 25 mg PO Q8H PRN PRN Reason: Vertigo Last Admin: 06/17/17 18:39 Dose: 25 mg Ondansetron HCl (Zofran) 4 mg IV Q4H PRN PRN Reason: Nausea And Vomiting Last Admin: 06/18/17 06:29 Dose: 4 mg Oxycodone/Acetaminophen (Percocet 5/325) 1 tab PO Q6H PRN PRN Reason: Pain, Moderate (4-6) Last Admin: 06/17/17 18:39 Dose: 1 tab Potassium Chloride (K-Dur) 20 meq PO QDAY MICHELLE Last Admin: 06/18/17 10:30 Dose: 20 meq Pregabalin (Lyrica) 75 mg PO BID MICHELLE Exam - Constitutional Vitals: Temp Pulse Resp BP Pulse Ox 99.0 F 67 16 106/59 96 06/18/17 07:40 06/18/17 10:31 06/18/17 07:40 06/18/17 10:31 06/18/17 10:00 Results - Labs CBC & Chem 7: 06/18/17 05:04 06/18/17 05:04 Labs: Abnormal lab results 06/17/17 06/18/17 06/18/17 Range/Units 16:37 05:04 05:04 WBC 12.3 H (4.5-11.0) K/mm3 MCV 81 L (84-94) fl Glucose 106 H (75-100) mg/dL POC Glucose 111 H (70-105) 06/18/17 06/18/17 Range/Units 06:25 11:33 WBC (4.5-11.0) K/mm3 MCV (84-94) fl Glucose (75-100) mg/dL POC Glucose 122 H 139 H (70-105)
[2017-06-18] MEDS: PERCOCET 5/325 PO PRN (19:55)
[2017-06-18] MEDS: LYRICA PO SCH (22:01)
--- NOTE | 2017-06-19 04:01 | Consultation ---
HISTORY OF PRESENT ILLNESS: This is a 51-year-old male that presents with acute onset of severe vertigo, dizziness, vomiting. He was taking no medications, has not been under a doctor's care. He denies any fever. There is no history of drug abuse or illicit alcohol. His primary care physician is Dr. Cobb. When he was initially seen, his blood pressure was slightly elevated at 146/97, pulse rate is 80, respirations 18. Seeing him, I have reviewed over his laboratories which do show a slightly elevated blood sugar of 139. Specifically, his white count slightly elevated at 12,300. His potassium is 4.3, sodium 137, chloride 99.1, anion gap is 26, BUN is 16, creatinine is 0.8. The patient on evaluation is feeling slightly better now. PHYSICAL EXAMINATION: When I examined him, he is fully alert, appropriate. Neck supple. Speech clear. Affect appropriate. He does complain of some slight pain over the vertex of the right side of the scalp. Inspecting the skin that area, I see nothing at all of any note that is worth commenting on. I am noticing he has a symmetrical commodity analyst. His ocular movements are quite full. No nystagmus. Up and down gaze are performed normally. Pupils are briskly reactive to light. Motor and sensory examination of the face is normal. Cranial nerves are intact. IMPRESSION: Vertigo with a negative neurological examination. Would recommend getting an MRI. Possibly has had a very minor brainstem stroke. This vertigo may actually be central as opposed to peripheral, and for that reason, we were not seeing any nystagmus. I will follow the patient with you. JOB# [id number] GIANLUCA/YEMI
[2017-06-19] MEDS: NOVOLOG SUB-Q SCH ×4 (08:52→21:50)
[2017-06-19] MEDS: AMARYL PO SCH (09:09)
[2017-06-19] MEDS: ASPIRIN PO SCH (10:24)
[2017-06-19] MEDS: K-DUR PO SCH (10:33)
[2017-06-19] MEDS: ZESTRIL PO SCH (10:33)
[2017-06-19] MEDS: ZYLOPRIM PO SCH (10:33)
[2017-06-19] MEDS: LYRICA PO SCH ×2 (10:33→21:50)
[2017-06-19] MEDS: LOVENOX SUB-Q SCH (10:34)
[2017-06-19] MEDS ORDERED: AMBIEN PO ONE ×2 (10:51→12:00)
--- NOTE | 2017-06-19 10:54 | Progress Note ---
Assessment and Plan Assessment and plan: Patient is a 51 years old male with past medical history of hypertension and diabetes mellitus who presents to the emergency department via EMS from home with a complaint of a generalized headache, nausea, vomiting and dizziness. Malignant hypertension Due to noncompliance with meds Started on Lisinopril IV Hydralazine for SBP>160 Closely monitor blood pressure Pre-Syncope We will admit to MED/Surg Normal CT of the head shows acute intercranial process ischemia, shift, mass, bleeding or skull fracture. Echocardiogram ordered and is pending MRI ordered ==>"pt. refused exam eventhough sedated. Pt. stated he has to be put to sleep and thats the only he can do the MRI. Nurse Nia notified", exam is nonfocal with a can have this as outpatient Abnormal EKG EKG sinus rhythm, normal axis, normal rate, T-wave inversions to the lateral leads Started on Asprin complete lipid panel ordered==> has dyslipidemia, most likely metabolic syndrome , lifestyle modification initiated and discussed the patient Echocardiogram ordered and reviewed Suspected benign vertigo, no central nystagmus Started on Antivert IV fluid hydration and the above plan Supportive care Intractable nausea and vomiting Resolved Leukocytosis, reactive Most likely due to Acute gastroenteritis Blood culture and urine cultures ordered Lactic acid ordered, elevated Normal KUB Acute gastroenteritis Most likely Due to spoilage of food Started on PPI and antiemetic Supportive care Uncontrolled diabetes mellitus Hold metformin for now and continue Amary Accu-Chek before meals and at bedtime Sliding scale insulin/NovoLog Hypokalemia Replaced Repeat BMP in the AM Closely monitor electrolytes Noncompliance Patient noncompliance with blood pressure medications, counseling done. DVT/prophylaxis Lovenox Carotid Dopplers negative, CT head negative, MRI unable to be done, neurological exam is nonfocal, echocardiogram pending, home soon as blood pressure control, counseling compliance Full code Disposition: Continue inpatient care, Echocardiogram normal. Cultures are normal. New issue: patient c/o fall with ataxia, unable to get an MRI because of claustrophobia, even 1 mg IV Ativan did not work. We'll consult neurology once available. Neurologists recommended MRI and use Ambien History Interval history: Patient was seen and examined. Follow-up on current diagnosis/blood pressure. Overnight uneventful. Patient denies any chest pain, shortness breath, nausea/ vomiting or severe headaches. Imaging, nursing note, chart, labs and old chart reviewed. Discussed with patient. New issue, dizziness, imbalance and fall backwards unto bed, no head trauma, no syncope Hospitalist Physical - Physical exam Narrative exam: GEN: WDWN, NAD, AWAKE, ALERT, ORIENTATED 3, patient speak fluent Japanese HEENT: NCAT, EOMI, PERRL, OP Clear NECK: supple, no adenopathy, no thyromegaly, no JVD CVS/HEART: RRR, NORMAL S1S2, NO JVD, pulses present bilaterally CHEST/LUNGS: CTA B, Symmetrical chest expansion, good air entry bilaterally GI/Abdomen: soft, NTND, good bowel sounds, no guarding or rebound /Bladder: no suprapubic tenderness, no CVA or paraspinal tenderness EXT/Skin: no c/c/e, no significant edema or obvious rash MSK: FROM x 4 Neuro: CN 2-12 grossly intact, no new focal deficits Psych: calm - Constitutional Vitals: Temp Pulse Resp BP Pulse Ox 98.1 F 72 20 142/91 96 06/19/17 09:16 06/19/17 10:33 06/19/17 09:16 06/19/17 10:33 06/19/17 09:16 General appearance: Present: no acute distress Results - Labs CBC & Chem 7: 06/18/17 05:04 06/18/17 05:04 Labs: Laboratory Last Values WBC 12.3 K/mm3 (4.5-11.0) H 06/18/17 05:04 RBC 4.98 M/mm3 (3.65-5.03) 06/18/17 05:04 Hgb 13.7 gm/dl (11.8-15.2) 06/18/17 05:04 Hct 40.4 % (35.5-45.6) 06/18/17 05:04 MCV 81 fl (84-94) L 06/18/17 05:04 MCH 28 pg (28-32) 06/18/17 05:04 MCHC 34 % (32-34) 06/18/17 05:04 RDW 14.1 % (13.2-15.2) 06/18/17 05:04 Plt Count 323 K/mm3 (140-440) 06/18/17 05:04 Lymph # Ceo And Co Founder 06/16/17 04:22 Add Manual Diff Complete 06/16/17 04:22 Total Counted 100 06/16/17 04:22 Seg Neuts % (Manual) 52.0 % (40.0-70.0) 06/16/17 04:22 Band Neutrophils % 0 % 06/16/17 04:22 Lymphocytes % (Manual) 38.0 % (13.4-35.0) H 06/16/17 04:22 Reactive Lymphs % (Man) 2.0 % 06/16/17 04:22 Monocytes % (Manual) 5.0 % (0.0-7.3) 06/16/17 04:22 Eosinophils % (Manual) 3.0 % (0.0-4.3) 06/16/17 04:22 Basophils % (Manual) 0 % (0.0-1.8) 06/16/17 04:22 Metamyelocytes % 0 % 06/16/17 04:22 Myelocytes % 0 % 06/16/17 04:22 Promyelocytes % 0 % 06/16/17 04:22 Blast Cells % 0 % 06/16/17 04:22 Nucleated RBC % Not Reportable 06/16/17 04:22 Seg Neutrophils # Man 8.1 K/mm3 (1.8-7.7) H 06/16/17 04:22 Band Neutrophils # 0.0 K/mm3 06/16/17 04:22 Lymphocytes # (Manual) 5.9 K/mm3 (1.2-5.4) H 06/16/17 04:22 Abs React Lymphs (Man) 0.3 K/mm3 06/16/17 04:22 Monocytes # (Manual) 0.8 K/mm3 (0.0-0.8) 06/16/17 04:22 Eosinophils # (Manual) 0.5 K/mm3 (0.0-0.4) H 06/16/17 04:22 Basophils # (Manual) 0.0 K/mm3 (0.0-0.1) 06/16/17 04:22 Metamyelocytes # 0.0 K/mm3 06/16/17 04:22 Myelocytes # 0.0 K/mm3 06/16/17 04:22 Promyelocytes # 0.0 K/mm3 06/16/17 04:22 Blast Cells # 0.0 K/mm3 06/16/17 04:22 WBC Morphology Not Reportable 06/16/17 04:22 Hypersegmented Neuts Not Reportable 06/16/17 04:22 Hyposegmented Neuts Not Reportable 06/16/17 04:22 Hypogranular Neuts Not Reportable 06/16/17 04:22 Smudge Cells Not Reportable 06/16/17 04:22 Toxic Granulation Not Reportable 06/16/17 04:22 Toxic Vacuolation Not Reportable 06/16/17 04:22 Dohle Bodies Not Reportable 06/16/17 04:22 Pelger-Huet Anomaly Not Reportable 06/16/17 04:22 Dayami Rods Not Reportable 06/16/17 04:22 Platelet Estimate Appears normal 06/16/17 04:22 Clumped Platelets Not Reportable 06/16/17 04:22 Plt Clumps, EDTA Not Reportable 06/16/17 04:22 Large Platelets Not Reportable 06/16/17 04:22 Giant Platelets Not Reportable 06/16/17 04:22 Platelet Satelliting Not Reportable 06/16/17 04:22 Plt Morphology Comment Not Reportable 06/16/17 04:22 RBC Morphology Normal 06/16/17 04:22 Dimorphic RBCs Not Reportable 06/16/17 04:22 Polychromasia Not Reportable 06/16/17 04:22 Hypochromasia Not Reportable 06/16/17 04:22 Poikilocytosis Not Reportable 06/16/17 04:22 Anisocytosis Not Reportable 06/16/17 04:22 Microcytosis Not Reportable 06/16/17 04:22 Macrocytosis Not Reportable 06/16/17 04:22 Spherocytes Not Reportable 06/16/17 04:22 Pappenheimer Bodies Not Reportable 06/16/17 04:22 Sickle Cells Not Reportable 06/16/17 04:22 Target Cells Not Reportable 06/16/17 04:22 Tear Drop Cells Not Reportable 06/16/17 04:22 Ovalocytes Not Reportable 06/16/17 04:22 Helmet Cells Not Reportable 06/16/17 04:22 [place] Bodies Not Reportable 06/16/17 04:22 [place] Rings Not Reportable 06/16/17 04:22 Siva Cells Not Reportable 06/16/17 04:22 Bite Cells Not Reportable 06/16/17 04:22 Crenated Cell Not Reportable 06/16/17 04:22 Elliptocytes Not Reportable 06/16/17 04:22 Acanthocytes (Spur) Not Reportable 06/16/17 04:22 Rouleaux Not Reportable 06/16/17 04:22 Hemoglobin C Crystals Not Reportable 06/16/17 04:22 Schistocytes Not Reportable 06/16/17 04:22 Malaria parasites Not Reportable 06/16/17 04:22 Matt Bodies Not Reportable 06/16/17 04:22 Hem Pathologist Commnt No 06/16/17 04:22 Sodium 137 mmol/L (137-145) 06/18/17 05:04 Potassium 4.3 mmol/L (3.6-5.0) D 06/18/17 05:04 Chloride 99.1 mmol/L (98-107) 06/18/17 05:04 Carbon Dioxide 26 mmol/L (22-30) 06/18/17 05:04 Anion Gap 16 mmol/L 06/18/17 05:04 BUN 12 mg/dL (9-20) 06/18/17 05:04 Creatinine 0.8 mg/dL (0.8-1.5) 06/18/17 05:04 Estimated GFR > 60 ml/min 06/18/17 05:04 BUN/Creatinine Ratio 15.00 % 06/18/17 05:04 Glucose 106 mg/dL (75-100) H 06/18/17 05:04 POC Glucose 105 (70-105) 06/19/17 06:07 Lactic Acid 2.70 mmol/L (0.7-2.0) H* 06/16/17 15:03 Calcium 8.8 mg/dL (8.4-10.2) 06/18/17 05:04 Total Bilirubin 0.20 mg/dL (0.1-1.2) 06/16/17 04:22 AST 19 units/L (5-40) 06/16/17 04:22 ALT 32 units/L (7-56) 06/16/17 04:22 Alkaline Phosphatase 73 units/L (35-129) 06/16/17 04:22 Troponin T < 0.010 ng/mL (0.00-0.029) 06/16/17 06:58 Total Protein 8.0 g/dL (6.3-8.2) 06/16/17 04:22 Albumin 4.1 g/dL (3.9-5) 06/16/17 04:22 Albumin/Globulin Ratio 1.1 % 06/16/17 04:22 Triglycerides 246 mg/dL (2-149) H 06/17/17 04:56 Cholesterol 203 mg/dL (50-199) H 06/17/17 04:56 LDL Cholesterol Direct 123 mg/dL (50-130) 06/17/17 04:56 HDL Cholesterol 31 mg/dL (40-59) L 06/17/17 04:56 Cholesterol/HDL Ratio 6.54 % 06/17/17 04:56 Lipase 44 units/L (13-60) 06/16/17 04:22 TSH 0.953 mlU/mL (0.270-4.200) 06/16/17 06:58 Urine Color Straw (Yellow) 06/16/17 06:09 Urine Turbidity Clear (Clear) 06/16/17 06:09 Urine pH 5.0 (5.0-7.0) 06/16/17 06:09 Ur Specific [place] 1.014 (1.003-1.030) 06/16/17 06:09 Urine Protein <15 mg/dl mg/dL (Negative) 06/16/17 06:09 Urine Glucose (UA) Neg mg/dL (Negative) 06/16/17 06:09 Urine Ketones Neg mg/dL (Negative) 06/16/17 06:09 Urine Blood Neg (Negative) 06/16/17 06:09 Urine Nitrite Neg (Negative) 06/16/17 06:09 Urine Bilirubin Neg (Negative) 06/16/17 06:09 Urine Urobilinogen < 2.0 mg/dL (<2.0) 06/16/17 06:09 Ur Leukocyte Esterase Neg (Negative) 06/16/17 06:09 Urine WBC (Auto) < 1.0 /HPF (0.0-6.0) 06/16/17 06:09 Urine RBC (Auto) 0.0 /HPF (0.0-6.0) 06/16/17 06:09 U Epithel Cells (Auto) < 1.0 /HPF (0-13.0) 06/16/17 06:09
--- NOTE | 2017-06-19 11:00 | Discharge Summary ---
Providers - Providers Date of Admission: 06/16/17 09:53 Attending physician: YEYO ULLOA 06/18/17 10:47 Consult to Physician [CONS] Routine Consulting Provider: LORETTA BANSAL Reason For Exam: why dizzy, headache and poor balance? Place consult to:: Christophe PORTER Notified:: [facility] Phone number called:: [phone] Was contact made?: Yes If yes, spoke with:: ANAI Time called:: 11:39 Comment:: DAYAMI NOTIFIED Primary care physician: [employer]PER[employer] Hospitalization Condition: Stable Hospital course: Assessment and plan: Patient is a 51 years old male with past medical history of hypertension and diabetes mellitus who presents to the emergency department via EMS from home with a complaint of a generalized headache, nausea, vomiting and dizziness. Malignant hypertension Due to noncompliance with meds Started on Lisinopril IV Hydralazine for SBP>160 Closely monitor blood pressure Pre-Syncope We will admit to MED/Surg Normal CT of the head shows acute intercranial process ischemia, shift, mass, bleeding or skull fracture. Echocardiogram ordered and is pending MRI ordered ==>"pt. refused exam eventhough sedated. Pt. stated he has to be put to sleep and thats the only he can do the MRI. Nurse Nia notified", exam is nonfocal with a can have this as outpatient Abnormal EKG EKG sinus rhythm, normal axis, normal rate, T-wave inversions to the lateral leads Started on Asprin complete lipid panel ordered==> has dyslipidemia, most likely metabolic syndrome , lifestyle modification initiated and discussed the patient Echocardiogram ordered and reviewed Suspected benign vertigo, no central nystagmus Started on Antivert IV fluid hydration and the above plan Supportive care Intractable nausea and vomiting Resolved Leukocytosis, reactive Most likely due to Acute gastroenteritis Blood culture and urine cultures ordered Lactic acid ordered, elevated Normal KUB Acute gastroenteritis Most likely Due to spoilage of food Started on PPI and antiemetic Supportive care Uncontrolled diabetes mellitus Hold metformin for now and continue Amary Accu-Chek before meals and at bedtime Sliding scale insulin/NovoLog Hypokalemia Replaced Repeat BMP in the AM Closely monitor electrolytes Noncompliance Patient noncompliance with blood pressure medications, counseling done. DVT/prophylaxis Lovenox Carotid Dopplers negative, CT head negative, MRI unable to be done, neurological exam is nonfocal, echocardiogram pending, home soon as blood pressure control, counseling compliance Full code Disposition: Continue inpatient care, Echocardiogram normal. Cultures are normal. New issue: patient c/o fall with ataxia, unable to get an MRI because of claustrophobia, even 1 mg IV Ativan did not work. We'll consult neurology once available. Neurologists recommended MRI and use Ambien If mri negative for stroke will d/c home Disposition: DC-01 TO HOME OR SELFCARE Time spent for discharge: 38 minutes Core Measure Documentation - Palliative Care Palliative Care/ Comfort Measures: Not Applicable - Core Measures Any of the following diagnoses?: none - VTE Discharge Requirements Deep Vein Thrombosis/Pulmonary Embolism Present on Admission: No Has pt received <5 days of overlap therapy or INR<2.0: No Anticoagulant overlap therapy prescribed at discharge: No Contraindication No Overlap Therapy order at DC: Not Indicated Exam - Physical Exam Narrative exam: GEN: WDWN, NAD, AWAKE, ALERT, ORIENTATED 3, patient speak fluent Turkmen HEENT: NCAT, EOMI, PERRL, OP Clear NECK: supple, no adenopathy, no thyromegaly, no JVD CVS/HEART: RRR, NORMAL S1S2, NO JVD, pulses present bilaterally CHEST/LUNGS: CTA B, Symmetrical chest expansion, good air entry bilaterally GI/Abdomen: soft, NTND, good bowel sounds, no guarding or rebound /Bladder: no suprapubic tenderness, no CVA or paraspinal tenderness EXT/Skin: no c/c/e, no significant edema or obvious rash MSK: FROM x 4 Neuro: CN 2-12 grossly intact, no new focal deficits Psych: calm - Constitutional Vitals: Temp Pulse Resp BP Pulse Ox 98.1 F 72 20 142/91 96 06/19/17 09:16 18 10:33 06/19/17 09:16 06/19/17 10:33 06/19/17 09:16 Plan Activity: no driving until cleared by PCP, other Diet: low salt, diabetic Special Instructions: record daily BP diary, record blood sugar diary (three times day) Follow up with: PRIMARY CARE,MD [Primary Care Provider] - 3-5 Days Prescriptions: Aspirin [Aspirin TAB] 325 mg PO DAILY #30 tablet Lisinopril [Zestril TAB] 10 mg PO QDAY #30 tablet Meclizine [Antivert] 25 mg PO Q8H PRN #30 tablet PRN Reason: Vertigo oxyCODONE /ACETAMINOPHEN [Percocet 5/325 mg] 1 tab PO Q6H PRN #5 day PRN Reason: Pain , Severe (7-10)
--- NOTE | 2017-06-19 12:39 | Consultation ---
History of Present Illness - Reason for Consult Consult date: 06/19/17 vertigo - History of Present Illness spoke to hospitalist about sedation for the MRI if ativan ineffective try Ambien Past History Past Medical History: diabetes, hypertension, other (gout ) Past Surgical History: No surgical history Social history: Lives alone. denies: smoking, alcohol abuse Family history: CAD, hypertension Medications and Allergies Allergies Allergy/AdvReac Type Severity Reaction Status Date / Time No Known Allergies Allergy Verified 06/16/17 04:09 Home Medications Medication Instructions Recorded Confirmed Last Taken Type Allopurinol 300 mg PO DAILY 06/16/17 06/16/17 Unknown History Glimepiride 1 mg PO DAILY 06/16/17 06/16/17 Unknown History Metformin HCl [Metformin HCl ER] 1,000 mg PO BID 06/16/17 06/16/17 Unknown History Aspirin [Aspirin TAB] 325 mg PO DAILY #30 tablet 06/19/17 Unknown Rx Lisinopril [Zestril TAB] 10 mg PO QDAY #30 tablet 06/19/17 Unknown Rx Meclizine [Antivert] 25 mg PO Q8H PRN #30 tablet 06/19/17 Unknown Rx oxyCODONE /ACETAMINOPHEN [Percocet 1 tab PO Q6H PRN #5 day 06/19/17 Unknown Rx 5/325 mg] Active Meds: Active Medications Allopurinol (Zyloprim) 300 mg PO QDAY [facility] Last Admin: 06/19/17 10:33 Dose: 300 mg Aspirin (Aspirin) 325 mg PO DAILY [facility] Last Admin: 06/19/17 10:24 Dose: 325 mg Dextrose (D50w (25gm) Syringe) 50 ml IV PRN PRN PRN Reason: Hypoglycemia Enoxaparin Sodium (Lovenox) 40 mg SUB-Q QDAY [facility] Last Admin: 06/19/17 10:34 Dose: 40 mg Glimepiride (Amaryl) 1 mg PO QDDIAB [facility] Last Admin: 06/19/17 09:09 Dose: 1 mg Hydralazine HCl (Apresoline) 10 mg IV Q4H PRN PRN Reason: Blood Pressure Insulin Aspart (Novolog) 0 units SUB-Q [facility] PRN Reason: Protocol Last Admin: 06/19/17 12:21 Dose: Not Given Insulin Aspart (Novolog) 0 units SUB-Q QHS [facility] PRN Reason: Protocol Last Admin: 06/18/17 22:01 Dose: Not Given Lisinopril (Zestril) 10 mg PO QDAY [facility] Last Admin: 06/19/17 10:33 Dose: 10 mg Meclizine HCl (Antivert) 25 mg PO Q8H PRN PRN Reason: Vertigo Last Admin: 06/17/17 18:39 Dose: 25 mg Ondansetron HCl (Zofran) 4 mg IV Q4H PRN PRN Reason: Nausea And Vomiting Last Admin: 06/18/17 06:29 Dose: 4 mg Oxycodone/Acetaminophen (Percocet 5/325) 1 tab PO Q6H PRN PRN Reason: Pain, Moderate (4-6) Last Admin: 06/18/17 19:55 Dose: 1 tab Potassium Chloride (K-Dur) 20 meq PO QDAY [facility] Last Admin: 06/19/17 10:33 Dose: 20 meq Pregabalin (Lyrica) 75 mg PO BID [facility] Last Admin: 06/19/17 10:33 Dose: 75 mg Exam - Constitutional Vitals: Temp Pulse Resp BP Pulse Ox 98.1 F 72 20 142/91 96 06/19/17 09:16 06/19/17 10:33 06/19/17 09:16 06/19/17 10:33 06/19/17 09:16 Results - Labs CBC & Chem 7: 06/18/17 05:04 06/18/17 05:04 Labs: Abnormal lab results 06/18/17 Range/Units 16:20 POC Glucose 130 H (70-105)
--- NOTE | 2017-06-19 13:29 | Magnetic Resonance Report ---
MRI OF THE BRAIN WITHOUT CONTRAST: HISTORY: CVA PROCEDURE: Multiplanar, multisequence MR imaging of the brain without IV contrast was performed. FINDINGS: The CT head performed 06/16/17 was reviewed. MR demonstrates a moderate-sized area of diffusion restriction in the inferior left cerebellar hemisphere measuring 4.9 x 3.7 cm on image 8. This appears to be primarily within the posterior inferior cerebellar artery territory. There is edema throughout this area on the T2-weighted images. No evidence for hemorrhage or significant mass effect. The remaining brain parenchyma demonstrates normal signal on all sequences. No chronic infarct or extra-axial fluid collection. The midline structures are central. The basal cisterns are patent. Normal ventricular size. The orbital cavities and sella turcica demonstrate no abnormality. The visualized paranasal sinuses and mastoid air cells are well aerated. IMPRESSION: Subacute left cerebellar infarct as described.
--- NOTE | 2017-06-19 16:51 | Consultation ---
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 denies: smoking, alcohol abuse Family history: CAD, hypertension Medications and Allergies Allergies Allergy/AdvReac Type Severity Reaction Status Date / Time No Known Allergies Allergy Verified 06/16/17 04:09 Home Medications Medication Instructions Recorded Confirmed Last Taken Type Allopurinol 300 mg PO DAILY 06/16/17 06/16/17 Unknown History Glimepiride 1 mg PO DAILY 06/16/17 06/16/17 Unknown History Metformin HCl [Metformin HCl ER] 1,000 mg PO BID 06/16/17 06/16/17 Unknown History Aspirin [Aspirin TAB] 325 mg PO DAILY #30 tablet 06/19/17 Unknown Rx Lisinopril [Zestril TAB] 10 mg PO QDAY #30 tablet 06/19/17 Unknown Rx Meclizine [Antivert] 25 mg PO Q8H PRN #30 tablet 06/19/17 Unknown Rx oxyCODONE /ACETAMINOPHEN [Percocet 1 tab PO Q6H PRN #5 day 06/19/17 Unknown Rx 5/325 mg] Active Meds: Active Medications Allopurinol (Zyloprim) 300 mg PO QDAY [facility] Last Admin: 06/19/17 10:33 Dose: 300 mg Aspirin (Aspirin) 325 mg PO DAILY [facility] Last Admin: 06/19/17 10:24 Dose: 325 mg Atorvastatin Calcium (Lipitor) 20 mg PO QHS [facility] Dextrose (D50w (25gm) Syringe) 50 ml IV PRN PRN PRN Reason: Hypoglycemia Enoxaparin Sodium (Lovenox) 40 mg SUB-Q QDAY [facility] Last Admin: 06/19/17 10:34 Dose: 40 mg Glimepiride (Amaryl) 1 mg PO QDDIAB [facility] Last Admin: 06/19/17 09:09 Dose: 1 mg Hydralazine HCl (Apresoline) 10 mg IV Q4H PRN PRN Reason: Blood Pressure Insulin Aspart (Novolog) 0 units SUB-Q AC [facility] PRN Reason: Protocol Last Admin: 06/19/17 12:21 Dose: Not Given Insulin Aspart (Novolog) 0 units SUB-Q QHS [facility] PRN Reason: Protocol Last Admin: 06/18/17 22:01 Dose: Not Given Lisinopril (Zestril) 10 mg PO QDAY [facility] Last Admin: 06/19/17 10:33 Dose: 10 mg Meclizine HCl (Antivert) 25 mg PO Q8H PRN PRN Reason: Vertigo Last Admin: 06/17/17 18:39 Dose: 25 mg Ondansetron HCl (Zofran) 4 mg IV Q4H PRN PRN Reason: Nausea And Vomiting Last Admin: 06/18/17 06:29 Dose: 4 mg Oxycodone/Acetaminophen (Percocet 5/325) 1 tab PO Q6H PRN PRN Reason: Pain, Moderate (4-6) Last Admin: 06/18/17 19:55 Dose: 1 tab Potassium Chloride (K-Dur) 20 meq PO QDAY [facility] Last Admin: 06/19/17 10:33 Dose: 20 meq Pregabalin (Lyrica) 75 mg PO BID [facility] Last Admin: 06/19/17 10:33 Dose: 75 mg Exam - Constitutional Vitals: Temp Pulse Resp BP Pulse Ox 98.1 F 93 H 50 H 109/59 91 06/19/17 16:00 06/19/17 16:00 06/19/17 16:00 06/19/17 16:00 06/19/17 16:00 Results - Labs CBC & Chem 7: 06/18/17 05:04 06/18/17 05:04
[2017-06-19] MEDS: PERCOCET 5/325 PO PRN (22:00)
[2017-06-20] MEDS: AMARYL PO SCH (09:16)
[2017-06-20] MEDS: NOVOLOG SUB-Q SCH ×2 (09:21→12:09)
[2017-06-20] MEDS: LYRICA PO SCH (10:03)
[2017-06-20] MEDS: ASPIRIN PO SCH (10:03)
[2017-06-20] MEDS: LOVENOX SUB-Q SCH (10:04)
[2017-06-20] MEDS: ZYLOPRIM PO SCH (10:05)
[2017-06-20] MEDS: K-DUR PO SCH (10:07)
[2017-06-20] MEDS: ZESTRIL PO SCH (10:54)
--- NOTE | 2017-06-20 10:54 | Discharge Summary ---
Providers - Providers Date of Admission: 06/16/17 09:53 Attending physician: JOSEPH BRANCH MD 06/18/17 10:47 Consult to Physician [CONS] Routine Consulting Provider: LORETTA BANSAL Reason For Exam: why dizzy, headache and poor balance? Place consult to:: Christophe PORTER Notified:: [facility] Phone number called:: [phone] Was contact made?: Yes If yes, spoke with:: ANAI Time called:: 11:39 Comment:: DAYAMI NOTIFIED 06/19/17 14:07 Occupational Therapy Evaluate and Treat [CONS] Routine Comment: Reason For Exam: cva Physical Therapy Evaluation and Treat [CONS] Routine Comment: Reason For Exam: acute cva Speech Therapy Evaluation and Treat [CONS] Routine Reason For Exam: cva Primary care physician: [employer] Hospitalization Condition: Stable Hospital course: walker bp discussed stroke and stroke prevention discussed in detail MRI reviewed, subacute left cerebellar infarct, d/w Dr. Bansal, d/c held, start lipitor, get pt/ot check a1c Original Note: Assessment and Plan Assessment and plan: Patient is a 51 years old male with past medical history of hypertension and diabetes mellitus who presents to the emergency department via EMS from home with a complaint of a generalized headache, nausea, vomiting and dizziness. Malignant hypertension Due to noncompliance with meds Started on Lisinopril IV Hydralazine for SBP>160 Closely monitor blood pressure Pre-Syncope We will admit to MED/Surg Normal CT of the head shows acute intercranial process ischemia, shift, mass, bleeding or skull fracture. Echocardiogram ordered and is pending MRI ordered ==>"pt. refused exam eventhough sedated. Pt. stated he has to be put to sleep and thats the only he can do the MRI. Nurse Nia notified", exam is nonfocal with a can have this as outpatient Abnormal EKG EKG sinus rhythm, normal axis, normal rate, T-wave inversions to the lateral leads Started on Asprin complete lipid panel ordered==> has dyslipidemia, most likely metabolic syndrome , lifestyle modification initiated and discussed the patient Echocardiogram ordered and reviewed Suspected benign vertigo, no central nystagmus Started on Antivert IV fluid hydration and the above plan Supportive care Intractable nausea and vomiting Resolved Leukocytosis, reactive Most likely due to Acute gastroenteritis Blood culture and urine cultures ordered Lactic acid ordered, elevated Normal KUB Acute gastroenteritis Most likely Due to spoilage of food Started on PPI and antiemetic Supportive care Uncontrolled diabetes mellitus Hold metformin for now and continue Amary Accu-Chek before meals and at bedtime Sliding scale insulin/NovoLog Hypokalemia Replaced Repeat BMP in the AM Closely monitor electrolytes Noncompliance Patient noncompliance with blood pressure medications, counseling done. DVT/prophylaxis Lovenox Carotid Dopplers negative, CT head negative, MRI unable to be done, neurological exam is nonfocal, echocardiogram pending, home soon as blood pressure control, counseling compliance Full code Disposition: Continue inpatient care, Echocardiogram normal. Cultures are normal. New issue: patient c/o fall with ataxia, unable to get an MRI because of claustrophobia, even 1 mg IV Ativan did not work. We'll consult neurology once available. Neurologists recommended MRI and use Ambien Disposition: [id number] HOME UNDER [facility] Time spent for discharge: 35 mins Core Measure Documentation - Palliative Care Palliative Care/ Comfort Measures: Not Applicable - Core Measures Any of the following diagnoses?: stroke - VTE Discharge Requirements Deep Vein Thrombosis/Pulmonary Embolism Present on Admission: No - Stroke Discharge Requirements Statin for LDL = or >70 mg/dl on DC: Yes Anticoag for atrial fib/atrial flutter: Not Applicable Antithrombotic for ischemic stroke: Yes Exam - Constitutional Vitals: Temp Pulse Resp BP Pulse Ox 99.0 F 74 18 94/58 96 06/20/17 08:11 06/20/17 08:11 06/20/17 08:11 06/20/17 08:11 06/20/17 08:11 Plan Activity: advance as tolerated, fall precautions Diet: low fat, low cholesterol Special Instructions: record daily weights, record daily BP diary, record blood sugar diary, physical therapy, occupational therapy Durable Medical Equipment Needed Upon Discharge: Walker-Rolling Follow up with: PRIMARY CAREMD [Primary Care Provider] - 3-5 Days LORETTA BANSAL MD [Staff Physician] - 7 Days Prescriptions: Pravastatin (Nf) [Pravachol] 40 mg PO QHS #30 tablet Aspirin [Aspirin TAB] 325 mg PO DAILY #30 tablet Lisinopril [Zestril TAB] 10 mg PO QDAY #30 tablet Meclizine [Antivert] 25 mg PO Q8H PRN #30 tablet PRN Reason: Vertigo oxyCODONE /ACETAMINOPHEN [Percocet 5/325 mg] 1 tab PO Q6H PRN #5 day PRN Reason: Pain , Severe (7-10) traMADol [Ultram] 50 mg PO Q6HR PRN #14 tablet PRN Reason: Pain
[2017-06-20 16:06] VITALS: BP 153/95
[2017-06-20] MEDS: PERCOCET 5/325 PO PRN (16:26)
== END 2017-06-20 17:45 | disposition home or self-care (01) | DRG 66 ==
LOC: ED 04:01 → CC1 09:53 → 3A 13:16
PROVIDERS: ADMIT Internal Medicine; ATTEND Internal Medicine
DX: I63.9 Cerebral infarction, unspecified (principal); R51 Headache; R11.2 Nausea with vomiting, unspecified; I10 Essential (primary) hypertension; E11.9 Type 2 diabetes mellitus without complications; D72.829 Elevated white blood cell count, unspecified; K52.9 Noninfective gastroenteritis and colitis, unspecified; E87.6 Hypokalemia; H81.10 Benign paroxysmal vertigo, unspecified ear; Z91.14 Patient's other noncompliance with medication regimen
CPT/HCPCS: 36415; 70450; 70551; 74000; 80048; 80053; 80061; 81001; 82140; 82962; 83036; 83690; 84443; 84484; 85007; 85025; 85027; 87040; 93005; 93010; 93306; 93880; 96361; 96372; 96374; 96375; A9270-GY; C9113; J0360; J1650; J2060; J2405; J2765; J7030